=== PATIENT | female | born 1990 | race Caucasian/White ===

== ENCOUNTER 2023-11-15 08:52 | Outpatient (CLI) | payer BC, SELFPAY ==
--- NOTE | ~2023-11-15 | MR_ITS ---
EXAMINATION: MR abdomen wo con DATE: 11/15/2023 11:18 INDICATION: Unspecified abdominal pain. TECHNIQUE: Magnetic resonance imaging (MRI) of the abdomen was performed without intravenous contrast . COMPARISON: None. FINDINGS: There is diffuse hepatic steatosis. The gallbladder, spleen, pancreas, adrenal glands, and kidneys ar e normal. There are no dilated loops of bowel. There are no pathologically enlarged lymph nodes. Ther e is no free intraperitoneal fluid. IMPRESSION: 1. Diffuse hepatic steatosis. Reviewed, dictated and finalized at location A.
--- NOTE | ~2023-11-15 | MR_ITS ---
EXAMINATION: MR hip RT wo con DATE: 11/15/2023 11:18 INDICATION: Idiopathic aseptic necrosis of right femur. Right hip pain. Right lower limb pain. TECHNIQUE: Magnetic resonance imaging (MRI) of the right hip was performed without intravenous contra st. COMPARISON: None FINDINGS: Bones/cartilage: Bone alignment is normal. No acute fracture. Right femoral head demonstrates collapse of the anterior superior articular surface. Right hip demonstrates areas of deep partial-thickness cartilage loss. O steophytes are noted. Large [id number] images of the left hip joint demonstrate normal cartilage. Labrum: The right acetabular labrum is normal. Fluid: There is a small right hip joint effusion. There is mild bilateral trochanteric bursitis. Soft tissues: The gluteus minimus and gluteus medius tendons are intact. The hamstring tendon origins are normal. T he iliopsoas tendons are normal. IMPRESSION: 1. Collapse of anterosuperior articular surface of right femoral head. Moderate right hip joint chond rosis. 2. Small right hip joint effusion. Reviewed, dictated and finalized at location A. IMPRESSION: 1. Collapse of anterosuperior articular surface of right femoral head. Moderate right hip joint chondrosis. 2. Small right hip joint effusion.
--- NOTE | ~2023-11-15 | MR_ITS ---
EXAMINATION: MR femur RT wo con DATE: 11/15/2023 11:18 INDICATION: Right hip and lower limb pain. TECHNIQUE: Magnetic resonance imaging (MRI) of the right femur was performed without intravenous cont rast. COMPARISON: None. FINDINGS: The right hip joint is not included. Bone alignment is normal. No fracture. There is mild o steoarthritis of patellofemoral compartment of right knee. No knee joint effusion. The musculature is normal. IMPRESSION: 1. Mild right knee osteoarthritis. 2. Right hip joint not included. Please refer to today's right hip MRI report for those findings. Reviewed, dictated and finalized at location A. IMPRESSION: 1. Mild right knee osteoarthritis. 2. Right hip joint not included. Please refer to today's right hip MRI report f or those findings.
--- NOTE | ~2023-11-15 | US_ITS ---
EXAMINATION: US thyroid DATE: 11/15/2023 09:24 INDICATION: Personal history of malignant neoplasm of thyroid. TECHNIQUE: Multiple ultrasound images of the thyroid were obtained. COMPARISON: None. FINDINGS: Right thyroid lobe is absent. The tissue in the left thyroidectomy bed measures 1.0 x 0.5 x 0.4 cm. T here is no lymphadenopathy. IMPRESSION: 1. Small volume of tissue in the left thyroidectomy bed. Reviewed, dictated and finalized at location A.
== END 2023-11-15 08:53 ==
PROVIDERS: PCP Nurse Practitioner Family; Visit Provider Nurse Practitioner Family
DX: M87.051 Idiopathic aseptic necrosis of right femur (principal); Z85.850 Personal history of malignant neoplasm of thyroid; R10.9 Unspecified abdominal pain; M17.11 Unilateral primary osteoarthritis, right knee; M94.351 Chondrolysis, right hip; M25.451 Effusion, right hip; K76.0 Fatty (change of) liver, not elsewhere classified
CPT/HCPCS: 73718; 73721; 74181; 76536

== ENCOUNTER 2024-05-22 12:34 | Outpatient (CLI) | payer BC, SELFPAY ==
--- NOTE | ~2024-05-22 | US_ITS ---
EXAMINATION: US thyroid DATE: 05/22/2024 12:48 INDICATION: Personal history of thyroid cancer post total thyroidectomy in October 1998 TECHNIQUE: Multiple ultrasound images of the thyroid were obtained. COMPARISON: 11/15/2023 FINDINGS: Redemonstration of a small focus of thyroid tissue to the left of midline at the level of the carotid artery measuring 12.3 x 6.1 x 4.7 mm (compared with 10.2 x 5.3 x 3.5 mm on the previous study). No homogeneous soft tissue suggesting residual (or recurrent) thyroid tissue is identified to the rig ht of midline, or within the expected region of the isthmus No discrete lymph nodes are present on the submitted images. IMPRESSION: Short interval growth of the triangular-shaped residual (or recurrent) soft tissue to the left of mid line which sonographically resembles thyroid tissue, as detailed above. Reviewed, dictated and finalized at location A. 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
== END 2024-05-22 12:35 | disposition home or self-care (01) ==
LOC: GOSHIMG 12:34
PROVIDERS: PCP Nurse Practitioner Family; Visit Provider Nurse Practitioner Family
DX: Z85.850 Personal history of malignant neoplasm of thyroid (principal); E89.0 Postprocedural hypothyroidism
CPT/HCPCS: 76536

== ENCOUNTER 2024-06-17 08:00 | Outpatient (RCR) | payer BC, SELFPAY ==
--- NOTE | 2024-01-10 08:40 | PCPTNOTE ---
Patient did not show up for scheduled initial evaluation this date.
--- NOTE | 2024-06-04 15:45 | PTOPEVAL1 ---
Assessment and note entered by Marina Cristobal, PT Evaluation Information Assessment Status Evaluation Diagnosis Idiopathic aseptic necrosis of right femur ICD-10 Condition Codes (PT) Pain in right hip M25.551,Weakness R53.1 Other ICD-10 Condition Codes ( stiffness in right hip PT) Subjective Information Pt reports had done PT for hip previously but the bone is so brittle that stretches and strengthening would break chips off. Would do ultrasound and deep tissue and that was successful for her. Has 3 children, 12, 9, 2 y/o. Is constantly running around with her 2 y/o. Is trying to push off surgery as long as she can. Has the most pain some days when she is really active is fine at the time but with the sleeping that night and the next day may have increased pain. Pt also reports riding in the car too long hip will lock up and may bother her for a few days after that. Pt reports is having to take more anti- inflammatory meds than used to, ibuprofen. Is taking possibly 600 mg every other day, mostly for night time otherwise can't sleep In the past ultrasound was very helpful but has not used e-stim Alternated hot and cold also Reported Pain Level Pain Score 7: Self Report Assessment PT Clinical Summary Pt presents w/ right hip pain, weakness, decreased ROM, and gait abnormality related to idiopathic aseptic necrosis of the right femoral head. She has attended therapy in the past approx one year ago and had the best results with soft tissue work and ultrasound modalities. Pt's goals are to decrease pain and improve function to postpone hip replacement surgery as long as she can as she is so young. Pt will greatly benefit from physical therapy to address deficits, and improve pain and function. Plan of Care Interventions Electrical Stimulation,Gait Training,Hot Pack/Cold Pack,Manual Therapy,Neuro Re-education, Therapeutic Activities,Therapeutic Exercise,Self- Care/Home Management,Ultrasound,Other Other Interventions Taping, bracing, IASTM, TENS unit PT Services Indicated Yes Treatment Frequency and 1-2x weekly x 20 visits Duration These treatments will address the objective and functional deficits as defined above. The patient will be advanced safely and appropriately in order for the patient to progress towards his/her prior level of function. Additional exercises will be introduced and as well as a comprehensive home exercise program upon discharge, if needed, ?to ensure carryover of functional gains achieved in the clinic. This treatment plan has been reviewed and agreement upon by the patient.
--- NOTE | 2024-06-04 15:45 | OPREHPOC ---
Outpatient Therapy Plan of Care This is a Multidisciplinary Plan of Care that may contain components documented by all disciplines (PT, OT, and ST.) PT Problem 1 PT Problem #1 Knowledge Deficit PT Goal 1 Goal / Goal Update Pt will be independent in HEP Pt will verbalize understanding of diagnosis and prognosis Target Visit 10 PT Problem 2 PT Problem #2 Pain PT Goal 1 Goal / Goal Update Pt will report lowest pain rating at 0/10 to show improvement in overall discomfort PT Goal 2 Goal / Goal Update Pt will report greatest pain level at 5/10 or less to improve ADLs and activities PT Problem 3 PT Problem #3 Impaired Strength PT Goal 1 Goal / Goal Update Pt will demonstrate gluteus leonard and medius strength of 3/5 to show improved strength for support and function. Target Visit 10 PT Goal 2 Goal / Goal Update Pt will demonstrate gluteus leonard and medius strength of 3+/5 to show improved strength for support and function. Target Visit 20 PT Problem 4 PT Problem #4 Impaired Range of Motion PT Goal 1 Goal / Goal Update Pt will demonstrate active ROM right hip extension of 10 degrees for normalize gait pattern Target Visit 10
--- NOTE | 2024-06-05 09:00 | PTOPEVAL1 ---
Assessment and note entered by Marina Cristobal, PT Evaluation Information Assessment Status Evaluation Diagnosis Idiopathic aseptic necrosis of the right femur ICD-10 Condition Codes (PT) Pain in right hip M25.551,Abnormalities of gait and mobility R26.9,Weakness R53.1 Other ICD-10 Condition Codes ( stiffness in the right hip PT) Subjective Information Pt reports had done PT for hip previously but the bone was so brittle that stretches and strengthening would break chips off. Would do ultrasound and deep tissue and that was successful for her. Has 3 children, 12, 9, and 2 y/. Is constantly running around wiht her 2 y/o. Is trying to push off surgery as long as she can. Has the most pain some days, when she is really active she will be fine at the time but with sleeping that night and the next day will have increased pain. Pt also reports riding in the care too long hip will lock and and may bother her for days after that. Pt reports having to take more anti-inflammatory meds than used to, Ibuprofen and is taking possibly 600 mg every other day., mostly for night time otherwise can't sleep. In the past ultrasound was very helpful but has not tried e-stim. Also Alternates hot and cold. Reported Pain Level Pain Score 7: Self Report Assessment PT Clinical Summary Pt presents w/ right hip pain, weakness, decreased ROM, and gait abnormality related to idiopathic aseptic necrosis of the right femoral head. She has attended therapy in the past approx one year ago and had the best results with soft tissue work and ultrasound modalities. Pt's goals are to decrease pain and improve function to postpone hip replacement surgery as long as she can as she is so young. Pt will greatly benefit from physical therapy to address deficits, and improve pain and function. Plan of Care Interventions Electrical Stimulation,Gait Training,Hot Pack/Cold Pack,Manual Therapy,Neuro Re-education,Patient/ Caregiver Education,Therapeutic Activities, Therapeutic Exercise,Self-Care/Home Management, Ultrasound,Other Other Interventions Taping, bracing, IASTM, TENS unit PT Services Indicated Yes Treatment Frequency and 1-2x weekly x 20 visits Duration These treatments will address the objective and functional deficits as defined above. The patient will be advanced safely and appropriately in order for the patient to progress towards his/her prior level of function. Additional exercises will be introduced and as well as a comprehensive home exercise program upon discharge, if needed, ?to ensure carryover of functional gains achieved in the clinic. This treatment plan has been reviewed and agreement upon by the patient.
--- NOTE | 2024-06-05 09:02 | OPREHPOC ---
Outpatient Therapy Plan of Care This is a Multidisciplinary Plan of Care that may contain components documented by all disciplines (PT, OT, and ST.) PT Problem 1 PT Problem #1 Knowledge Deficit PT Goal 1 Goal / Goal Update Pt will be independent in HEP Pt will verbalize understanding of diagnosis and prognosis Target Visit 10 PT Problem 2 PT Problem #2 Pain PT Goal 1 Goal / Goal Update Pt will report lowest pain rating at 0/10 to show improvement in overall discomfort Target Visit 10 PT Goal 2 Goal / Goal Update Pt will report greatest pain level at 3/10 or less to improve ADLs and activities Target Visit 20 PT Problem 3 PT Problem #3 Impaired Strength PT Goal 1 Goal / Goal Update Pt will demonstrate gluteus leonard and medius strength of 3/5 to show improved strength for support and function Target Visit 10 PT Goal 2 Goal / Goal Update Pt will demonstrate gluteus leonard and medius strength of 3+/5 to show improved strength for support and function Target Visit 20 PT Problem 4 PT Problem #4 Impaired Range of Motion PT Goal 1 Goal / Goal Update Pt will demonstrate active ROM of the right hip extension of 10 degrees for normalized gait pattern Target Visit 10
--- NOTE | 2024-06-05 09:26 | PCPTNOTE ---
Evaluation and plan of care notes deleted and due to incorrect v#.
--- NOTE | 2024-07-01 14:03 | PCPTNOTE ---
Patient did not show up for scheduled appointment this date.
--- NOTE | 2024-07-17 08:28 | PTOPDC ---
Assessment and note entered by Concetta Rain, SPT Evaluation Information Assessment Status Discharge - Pt Not Present Diagnosis Idiopathic aseptic necrosis of the right femur ICD-10 Condition Codes (PT) Pain in right hip M25.551,Abnormalities of gait and mobility R26.9,Weakness R53.1 Other ICD-10 Condition Codes ( stiffness in the right hip PT) Assessment PT Clinical Summary Patient seen for R hip pain due to necrosis of R femur head for 3 treatment sessions. Patient is requesting to be discharged from physical therapy due her opting to undergo surgery at this time. Plan of Care PT Services Indicated No
== END 2024-07-17 08:36 | disposition home or self-care (01) ==
LOC: ANHHIPT 08:00
PROVIDERS: PCP Nurse Practitioner Family; Visit Provider Nurse Practitioner Family
DX: M87.051 Idiopathic aseptic necrosis of right femur (principal)
CPT/HCPCS: 97014; 97035; 97110; 97140; 97162; G0283

== ENCOUNTER 2025-04-01 10:45 | Outpatient (CLI) | payer BC, OTHER, SELFPAY ==
--- NOTE | ~2025-04-01 | CT_ITS ---
EXAM/PROCEDURE: CT abdomen pelvis wo con HISTORY: Right lower quadrant abdominal swelling, palpable mass COMPARISON: None available. TECHNIQUE: Noncontrast CT of the abdomen and pelvis performed. FINDINGS: The bowel gas pattern is nonobstructive with no free air free fluid or pneumatosis. Moderate fatty liver changes. Normal size appendix, aorta and gallbladder. Pancreas spleen stomach and adrenal glands appear normal. No hydroureteronephrosis. No obstructing ureteral stones. No kidney or urinary bladder stones. Anteflexed uterus and adnexal regions appear within normal limits. Along the anterior margin of the lower right rectus abdominous muscle on the lateral aspect in the mid pelvic region, image 99 series 2, a 2.5 x 1.5 x 1.7 cm soft tissue mass is present with mild adjacent strandy changes. This is not clearly fluid attenuating. Moderate degenerative changes and possible avascular necrosis of the right femoral head. Mild degenerative changes in the left hip and lower lumbar spine. No acute or aggressive bony process seen. IMPRESSION: 1. Directed noncontrast exam demonstrating a 2.5 x 1.5 x 1.7 cm soft tissue mass or complex fluid collection along the anterior margin of the lower right rectus abdominis muscle with adjacent strandy changes concerning for infection. Small developing abscess is not excluded. Neoplasm is less likely. 3. Other findings as above. Reviewed, dictated and finalized at location A. KAY MACHINE OPERATOR IMPRESSION: 1. Directed noncontrast exam demonstrating a 2.5 x 1.5 x 1.7 cm soft tissue mas s or complex fluid collection along the anterior margin of the lower right rect us abdominis muscle with adjacent strandy changes concerning for infection. Sma ll developing abscess is not excluded. Neoplasm is less likely. 3. Other findings as above.
== END 2025-04-01 10:46 | disposition home or self-care (01) ==
PROVIDERS: PCP Nurse Practitioner Family; Visit Provider Nurse Practitioner Family
DX: R19.03 Right lower quadrant abdominal swelling, mass and lump (principal); K76.0 Fatty (change of) liver, not elsewhere classified; M16.12 Unilateral primary osteoarthritis, left hip; M43.06 Spondylolysis, lumbar region
CPT/HCPCS: 74176

== ENCOUNTER 2025-04-01 10:50 | Outpatient (CLI) | payer BC, OTHER, SELFPAY ==
--- NOTE | ~2025-04-01 | US_ITS ---
EXAMINATION: US thyroid DATE: 04/01/2025 11:43 INDICATION: Possible nodule TECHNIQUE: Multiple ultrasound images of the thyroid were obtained. COMPARISON: May 22, 2024 FINDINGS: No tissue seen in the right thyroid bed region. In the left thyroid bed region, a 10 x 6 x 4 mm soft tissue focus is noted similar in appearance to the previous exam. IMPRESSION: 1. Status post thyroidectomy with 10 x 6 x 4 mm soft tissue focus in the left thyroid bed region stable to the previous exam given variation in measurement. 2. If there is concern for occult or subtle mass or soft tissue process, correlation with contrast-enhanced soft tissue neck CT may provide additional beneficial information. Reviewed, dictated and finalized at location A. L RUNNER IMPRESSION: 1. Status post thyroidectomy with 10 x 6 x 4 mm soft tissue focus in the left t hyroid bed region stable to the previous exam given variation in measurement. 2. If there is concern for occult or subtle mass or soft tissue process, correl ation with contrast-enhanced soft tissue neck CT may provide additional benefic ial information.
== END 2025-04-01 10:51 | disposition home or self-care (01) ==
PROVIDERS: PCP Internal Medicine Endocrinology, Diabetes & Metabolism; Visit Provider Internal Medicine Endocrinology, Diabetes & Metabolism
DX: Z85.850 Personal history of malignant neoplasm of thyroid (principal); Z90.89 Acquired absence of other organs
CPT/HCPCS: 76536

== ENCOUNTER 2025-04-13 00:17 | Day surgery (SDC) | payer BC, OTHER, SELFPAY ==
--- OUTSIDE RECORDS SUMMARY | 2024-07-07 02:20 | XMS_ITS ---
Author Organization [facility] Address [address] [place] [address] Care Team Providers Care Shirt Ironer Supervisor Name Role Phone Raquel Phan Primary Care Provider [phone] REASON FOR VISIT 6 week f/u sharif Medications Medication SIG (Take, Route, Frequency, Duration) Notes Start Date End Date Status Tirosint 150 MCG Capsule 1 capsule in th e morning on an empty stomach Orally Once a day; Duration: 90 days 05/23/2024 Active Encounters Encounter Location Date Provider Diagnosis [facility] Dr. 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 Originally dx with thyroid cancern in 2018= had total thyroidectomy and has received I131 BAKER x 2 occasions-last scan normal from 2019. Last TSH elevated at 3.57 uIU/ml from fall. Had thyroid u/s from November 11 revealed residual thyroid tissue in left bed 10.2 x 5.3 x 3.5 mm and just yesterday she went to see ENT from her surgeon to follow up on growth- and just watching/monitoring at this time. Repeat thyroid u/s yesterday was 12.3 x 6.1 x 4.7 mm. 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 Originally dx with thyroid cancern in 2018= had total thyroidectomy and has received I131 BAKER x 2 occasions-last scan normal from 2019. Last TSH elevated at 3.57 uIU/ml from fall. Had thyroid u/s from November 11 revealed residual thyroid tissue in left bed 10.2 x 5.3 x 3.5 mm and just yesterday she went to see ENT from her surgeon to follow up on growth- and just watching/monitoring at this time. Repeat thyroid u/s yesterday was 12.3 x 6.1 x 4.7 mm. At last visit/initial visit in May we sent for labwork - not completed. * Medications: T akingTirosint 150 MCG Capsule 1 capsule in the morning on an empty stomach Orally Once a day Taking Tirosint 150 MCG Capsule 1 capsule in the morning on an empty stomach Orally Once a day Billing Information: * Procedure Codes: * Electronic signature of Mg Phan MD on 04/13/2025 at 12:21 AM SENIOR INFORMATICA DEVELOPER Sign off status: Pending * Provider: Otoniel Phan MD Date: 07/07/2024 Generated for Javier aquino/Syed/Addisitting on: 06/13/2024 12:21 AM SENIOR INFORMATICA DEVELOPER
--- NOTE | 2025-04-06 12:38 | PC.NURSE ---
[facility] has started construction of its new state of the art ER which will open Spring 2026. With this, we anticipate parking may be a challenge for some our surgical patients and families. Parking spaces are limited but are available for all Surgical, obstetrics, and ER patients sharing this lot. If you arrive and find you are having a hard time finding a parking space, please note that we understand the challenges, please drive around the hospital and park near Hospital Entrance 1. When you enter this entrance, you can ask a volunteer to direct or take you back to the surgical waiting area to check in. We appreciate everyone?s understanding of these expected challenges while we build for your future. Report to the Outpatient Waiting Room, entrance under the green pavilion located off [address], at time __1200 NOON on date _04/13/25 . Planned Procedure Time: _2_PM .? Time changes happen often and if your time is changed the preop area will call you the afternoon before. - You and your visitor will be asked to self-screen and do not enter if you have any COVID symptoms. Please call surgeon if you need to reschedule. - A mask is optional within the hospital at this time. Patients may have clear liquids (water, carbonated beverages, clear teas, apple juice) until 3 hours prior to surgery( 11 AM ) with a maximum of 20 ounces. - No food from midnight until time of surgery and no smoking, or chewing tobacco (or any form of nicotine). No chewing gum, candy or mints. - Take only the following medications with a SIP of water on the morning of surgery: __TIROSINT DO NOT STOP ANY OF YOUR OTHER PRESCRIPTION MEDICATIONS PRIOR TO SURGERY EXCEPT THE FOLLOWING Hold all vitamins and supplements for 3 days per anesthesiologist.LAST DOSE 04/09/25 Medications to discontinue per physician NONE Please no make-up, nail uzbek, hairspray, perfume, deodorant, or body powder the day of surgery.? No jewelry (including any body piercings) or valuables the day of surgery, leave them at home.? Please take a shower or bath the night before, or the morning of, surgery with an antibacterial soap.? Wear comfortable, loose fitting clothing.? Children are encouraged to wear pajamas. - Jewelry must be removed prior to entering the operating room.? Rings and piercings that are not removed may be cut off. - The hospital will not accept responsibility for valuables.? - Please leave all valuables, including medications, at home the day of surgery. If you are going home after surgery, a licensed wrecking car driver must drive you home.? - NO public transportation without another adult if you receive anesthesia. - We recommend that an adult stay with you for 24 hours following discharge. - We also recommend that you do not drive, make important decision, drink alcoholic beverages, or take any drugs that were not prescribed by your health care provider for at least 24 hours after your discharge time. For Pediatric surgeries, we recommend two adults accompany the child home. Follow any additional instructions given to you from your surgeon. Telephone instructions given to __PATIENT and asked if any additional questions and then verbalized understanding. Patient advised to call surgeon office or pre surgery nurse liaison [phone] if any additional questions.
[2025-04-06 12:47] VITALS: BMI 36.1
[2025-04-13] VITALS (9 sets, daily range): BP systolic 113–130; BP diastolic 60–89; PULSE 85–110; RESP 12–20; O2SAT 100; BMI 36.1
--- NOTE | ~2025-04-13 | US_ITS ---
EXAMINATION: US_WIRELOC_US DATE: 04/13/2025 13:09 INDICATION: Needle localization required for a right lower quadrant abdominal wall mass resection TECHNIQUE: The procedure including the risks and benefits was discussed with the patient. Risks discussed included bleeding and infection. The patient understood the risks and agreed to proceed. The skin overlying the lesion of concern at the right lower quadrant was prepped and draped in usual sterile fashion. Anesthetic was administered with 1% lidocaine subcutaneously. A needle was advanced under continuous ultrasound guidance into the hypoechoic nodule of concern along the right lower quadrant anterior abdominal wall musculature. A hooked localization wire was advanced through the guide needle into the lesion of concern. The guide needle was removed. A sterile bandage was placed over the portion of the wire external to the patient. There were no immediate complications.. FINDINGS: Ultrasound images demonstrate the hyperechoic tip of the guide needle centered within the 3.1 x 2.0 x 1.6 similar hypoechoic nodule located along the superficial margin of the abdominal wall musculature in the right lower quadrant. IMPRESSION: 1. Successful Ultrasound-guided needle localization of a 3.1 x 2.0 x 1.6 cm right lower quadrant abdominal wall nodule for subsequent planned resection. Reviewed, dictated and finalized at location A. [place] [employer] IMPRESSION: 1. Successful Ultrasound-guided needle localization of a 3.1 x 2.0 x 1.6 cm rig ht lower quadrant abdominal wall nodule for subsequent planned resection.
--- OUTSIDE RECORDS SUMMARY | 2025-04-13 00:21 | XMS_ITS | Clinical Summary ---
Author Organization [place] [id number] [facility] Address [facility] [place] [address] Care Team Providers Care Political Organizer Name Role Phone Unknown, Notinfile Primary Care Provider Unavail able Allergies Active Allergy Reactions Criticality Noted Date Comments Iodine Rash Medium 10/31/2019 Shellfish Unknown 05/07/2023 Medications cholecalciferol (VITAMIN D-3) 2000 unit capsule daily Active fluticasone propionate (FLONASE) 50 mcg/actuation nasal spray fluticasone propionate 50 mcg/actuation nasal spray,suspension U 1 SPR IEN QHS . NEEDS AN APPOINTMENT IN 1 MONTH. Active levothyroxine sodium (Tirosint) 125 mcg capsule Take 150 mcg by mouth [employer] before breakfast Active oseltamivir (TAMIFLU) 75 mg capsule oseltamivir 75 mg capsule Active thyrotropin stephen (THYROGEN) 1.1 mg (0.9 mg/ mL final conc.) recon soln 0.9 mg daily Active Active Problems Problem Noted Date Diagnosed Date Family hx of colon cancer 10/08/2023 Family history of colon cancer 06/08/2023 Abdominal pain 06/08/2023 Neck mass 10/31/2019 Surgical History Surgery Date Site/Laterality Comments THYROID SURGERY Medical History Medical History Date Comments Allergic rhinitis Anxiety Autoimmune disease Thyroid disease Family History Medical History Relation Name Comments gallbladder cancer Father Colon cancer Maternal Grandfather Stomach cancer Maternal Grandmother Cancer Other Relation Name Status Comments Father Maternal Grandfather Maternal Grandmother Other Social History Tobacco Use Types Packs/Day Years Used Date Smoking Tobacco: Never Smokeless Tobacco: Never AUDIT-C Answer Date Recorded Q1: How often do you have a drink containing alc ohol? Never 06/08/2023 Average Number of Drinks Not on file 024 Frequency of Binge Drinking Not on file 05/21 Personal Safety Answer Date Recorded Getting School Help Needed Not on file 06/06 Comments Unknown Sex and Gender Information Value Date Recorded Sex Assigned at Not on file Legal Sex Female 11:53 AM CDT Gender Identity Not on file Sexual Orientation Not on file Last Filed Vital Signs Vital Sign Reading Time Taken Comments Blood Pressure 115/67 06/08/2023 1:47 PM [employer] Pulse 78 06/08/2023 1:47 PM [employer] Temperature 36.7 C (98.1 F) 10/31/2019 3:15 PM CDT Respiratory Rate - - Oxygen Saturation 99% 06/08/2023 1:47 PM [employer] Inhaled Oxygen Concentration - - Weight 88.8 kg (195 lb 11.2 oz) 06/08/2023 1:47 PM [employer] Height 162.6 cm (5' 4) 06/08/2023 1:47 PM [employer] Body Mass Index 33.59 06/08/2023 1:47 PM [employer] Plan of Treatment Health Maintenance Due Date Last Done Comments Cervical Cancer Screening 1989 Depression Screening 1989 DTaP/Tdap/Td Vaccine (1 - Tdap) 2000 Varicella Vaccines (1 of 2 - 13+ 2-dose series) 2002 Hepatitis B Screening 12/18/2007 Regular Well Visit/Exam 18-64 12/18/2007 HPV Vaccines (1 - 3-dose SCD M series) 2016 Influenza Vaccine (#1) 2025 02/17/2020 Hepatitis C Screening Completed 06/08/2023 Pneumococcal vaccine <65 Aged Out No longer eligible based on patient's age to complete this topic Procedures Procedure Name Priority Date/Time Associated Diagnosis Comments HEPATITIS PANEL, ACUTE Routine 06/08/2023 2:49 PM [employer] Non-alcoholic fatty liver disease Hepatic steatosis from Last 3 Months or Most Recently Relevant to Health Maintenance Results * Hepatitis panel, acute Blood (06/08/2023 2:49 PM [employer]) Hep A IgM Nonreactive Nonreactive [facility] (YENIFER) Comment: Interpretive Data: If Hep A IgM Ab is reported as Equivocal, a new sample should be drawn in two weeks for testing. Current interpretive data was last revised on 19. Testing performed by: [facility], [address] [place] [address]., [id number] Hep B core IgM Nonreactive Nonreactive C KATERINA LACEY (YENIFER) Comment: Interpretive Data If HepB Core IgM Ab is reported as Equivocal, a new sample should be drawn in two weeks for testing. Current interpretive data was last revised on 19. Testing performed by: [facility], [address] [place] [address]., [id number] Hep C Ab Nonreactive Nonreactive BRIAN LACEY (YENIFER) Comment: Interpretive Data Nonreactive: Antibodies to HCV not detected. Does NOT exclude the possibility of recent exposure to HCV. Equivocal: Equivocal for HCV antibodies. Supplemental molecular testing will be automatically performed to determine infection status in accordance with current CDC screening recommendations. Reactive: Positive for HCV antibodies. This may represent current or past HCV infection. Supplemental molecular testing will be automatically performed to determine current infection status in accordance with current CDC screening recommendations. Interpretive data was last revised on 2019. Testing performed by: [facility], [address] [place] [address]., [id number] HepBsAg Nonreactive Nonreactive BRIAN LACEY (YENIFER) Comment:Testing performed by : [address] [id number] Blood 06/08/2023 2:49 PM [employer] 06/08/2023 7:44 PM [employer] [facility] - GENER AL ORDERABLES Final Result BRIAN LACEY (YENIFER) 1 [facility] [place] [address] from Last 3 Months or Most Recently Relevant to Health Maintenance Insurance [facility] Care Teams Political Organizer Relationship Specialty Start Date End Date Unknown, Notinftressa PCP - General 11/29/23
--- OUTSIDE RECORDS SUMMARY | 2025-04-13 00:21 | XMS_ITS | Patient Health Record ---
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 Role Phone Raquel Phan Primary Care Provider Allergies Allergen (clinical drug ingredient) Drug/Non Drug Allergy documented on EMR Reaction Allergy Type Onset Date Status Iodine Unknown Drug Allergy Active Shellfish (FN) Shellfish-derived Products Unknown Drug Allergy Active Results Component Value Reference Range Flag Notes .COMPREHENSIVE METABOLIC FONSECA EL (36521) CMP Reviewed date:08/17/2024 03:01:26 PM Interpretation: Performing Lab:[place], [facility]-Dkcmdo61017 Jonn [facility], QyriwdXU[address] Jamin Harris MD Notes/Report: FASTING:YES FASTING: YES GLUCOSE 77 65-99 mg/dL N Fasting refer ence interval UREA NITROGEN (BUN) 11 7-25 mg/dL N CREATININE 0.65 0.50-0.97 mg/dL N EGFR 118 > OR = 60 mL/min/1.73m2 N BUN/CREATININE RATIO SEE NOTE: 6-22 (calc) reference range. Not Reported: BUN and Creatinine are within SODIUM 137 135-146 mmol/L N POTASSIUM 4.0 3.5-5.3 mmol/L N CHLORIDE 104 98-110 mmol/L N CARBON DIOXIDE 23 20-32 mmol/L N CALCIUM 9.5 8.6-10.2 mg/dL N PROTEIN, TOTAL 7.2 6.1-8.1 g/dL N ALBUMIN 4.5 3.6-5.1 g/dL N GLOBULIN 2.7 1.9-3.7 g/dL (calc) N ALBUMIN/GLOBULIN RATIO 1.7 1.0-2.5 (calc) N BILIRUBIN, TOTAL 0.6 0.2-1.2 mg/dL N ALKALINE PHOSPHATASE 59 31-125 U/L N AST 30 10-30 U/L N ALT 49 6-29 U/L H MAGNESIUM (622) Reviewed date:08/17/2024 03:01:26 PM Interpretation: Performing Lab:PILAR [facility]-Lfxocs88369 Jonn Harrell, MucxrdQG[address] Jamin Harris MD Notes/Report: FASTING:YES FASTING: YES MAGNESIUM 2.2 1.5-2.5 mg/dL N IRON AND TOTAL IRON BINDING CAPACITY (7573) Reviewed date:08/17/2024 03:01:26 PM Interpretation: Performing Lab:Trino QUEZADA-Dyxiyk90432 Jonn Harrell, RnbilqDE[address] Jamin Harris MD Notes/Report: FASTING:YES FASTING: YES IRON, TOTAL 87 40-190 mcg/dL N IRON BINDING CAPACITY 392 250-450 mc g/dL (calc) N % SATURATION 22 16-45 % (calc) N .LIPID PANEL, STANDARD (7600 ) Reviewed date:08/17/2024 03:01:26 PM Interpretation: Performing Lab:PILAR [facility]-Ukrzvu86996 Jonn Harrell, DkeccwOP[address] Jamin Harris MD Notes/Report: FASTING:YES FASTING: YES CHOLESTEROL, TOTAL 246 <200 mg/dL H HDL CHOLESTEROL 65 > OR = 50 mg/dL N TRIGLYCERIDES 154 <150 mg/dL H LDL-CHOLESTEROL 152 H Justin SS et al. NURYS. 2013;310(19): 0944-7186 (http://education.ididwork/faq/NYY172) Reference range: <100 LDL-C is now calculated using the Justin-Boyd estimation of LDL-C. better accuracy than the Friedewald equation in the <70 mg/dL for patients with CHD or diabetic patients with > or = 2 CHD risk factors. calculation, which is a validated novel method providing Desirable range <100 mg/dL for primary prevention; CHOL/HDLC RATIO 3.8 <5.0 (calc) N NON HDL CHOLESTEROL 181 <130 mg/dL (calc) H (LDL-C of <70 mg/dL) is considered a therapeutic factor, treating to a non-HDL-C goal of <100 mg/dL For patients with diabetes plus 1 major ASCVD risk option. .CBC (INCLUDES DIFF/PLT) (63 99) Reviewed date:08/17/2024 03:01:26 PM Interpretation: Performing Lab:Trino QUEZADAa101Kayla Harrell, JsavkgSR[address] Jamin Harris MD Notes/Report: FASTING:YES FASTING: YES WHITE BLOOD CELL COUNT 6.8 3.8-10.8 Thousand/uL N RED BLOOD CELL COUNT 5.03 3.80-5.10 Million/uL N HEMOGLOBIN 14.1 11.7-15.5 g/dL N HEMATOCRIT 43.2 35.0-45.0 % N MCV 85.9 80.0-100.0 fL N MCH 28.0 27.0-33.0 pg N MCHC 32.6 32.0-36.0 g/dL N interpreted with caution in correlation with other red cell parameters and the patient's clinical value (in the range of 30 to 32 g/dL) is most likely For adults, a slight decrease in the calculated MCHC condition. not clinically significant; however, it should be RDW 12.8 11.0-15.0 % N PLATELET COUNT 291 140-400 Thousand/uL N MPV 9.0 7.5-12.5 fL N ABSOLUTE NEUTROPHILS [phone] cells/uL N ABSOLUTE LYMPHOCYTES 3520 096-8441 cells/uL N ABSOLUTE MONOCYTES 632 200-950 cells/uL N ABSOLUTE EOSINOPHILS 122 15-500 cells/uL N ABSOLUTE BASOPHILS 61 0-200 cells/uL N NEUTROPHILS 64.2 N LYMPHOCYTES 23.8 N MONOCYTES 9.3 N EOSINOPHILS 1.8 N BASOPHILS 0.9 N SED RATE BY MODIFIED TOR BOWENS (809) Reviewed date:08/17/2024 03:01:26 PM Interpretation: Performing Lab:Trino QUEZADA LenexaKS[address] Jamin Harris MD Notes/Report: FASTING:YES FASTING: YES SED RATE BY MODIFIED NAKIA 17 < OR = 20 mm/h N ESTRADIOL (4021) Reviewed date:08/17/2024 03:01:26 PM Interpretation: Performing Lab:Trino QUEZADA Len[place]aKS[address] Jamin Harris MD Notes/Report: FASTING:YES FASTING: YES ESTRADIOL 134 N Follicular Phase: 19-144 Reference range established on post-pubertal patient Postmenopausal: < or = 31 interference in immunoassay methods for estradiol population. No pre-pubertal reference range fulvestrant (Faslodex(R)) have demonstrated significant Reference Range Estradiol, Ultrasensitive, LCMSMS assay is recommended measurement. The cross reactivity could lead to falsely pre-pubertal children and hypogonadal/post-menopaus al Please note: patients being treated with the drug (order code [id number]). [employer] order code [id number], Ultrasensitive LC/MS/MS demonstrates negligible cross Mid-Cycle: 64-357 established using this assay. For any patients for Luteal Phase: 56-214 females), the [employer] [facility] reactivity with fulvestrant. whom low Estradiol levels are anticipated (e.g. males, elevated estradiol test results leading to an inappropriate clinical assessment of estrogen status. T3, FREE (94504) Reviewed date:08/17/2024 03:01:26 PM Interpretation: Performing Lab:PILAR [facility]-Yqfycj53479 [facility], HugnzbSG[address] Jamin Harris MD Notes/Report: FASTING:YES FASTING: YES T3, FREE 3.8 2.3-4.2 pg/mL N TESTOSTERONE, FREE (DIALYSIS ) AND TOTAL,MS (89835) Reviewed date:08/20/2024 08:18:47 PM Interpretation: Performing Lab:Z3E, [facility] [employer]-QviMfpdmr[address] [place] [address], [address], HjuqkjyubzSK[address] Eliud Gordon MD,PhD Notes/Report: FASTING:YES FASTING: YES TESTOSTERONE, TOTAL, MS 40 2-45 ng/dL For additional information, please refer to This test was developed and its analytical performance https://education.Protein Bar.Lanica/faq/RCD586 been validated pursuant to the CLIA regulations and is used for clinical purposes. not been cleared or approved by the FDA. This assay has characteristics have been determined by [employer]. It has (Note) (This link is being provided for informational/educational purposes only.) TESTOSTERONE, FREE 4.9 0.1-6.4 pg/mL [phone] [facility] [address] been validated pursuant to the CLIA regulations and is not been cleared or approved by the FDA. This assay has characteristics have been determined by [employer]. It has [address] [facility] [address] used for clinical purposes. This test was developed and its analytical performance Eliud Gordon MD, PhD med [employer]zen[employer] (Note) THYROGLOBULIN PANEL (98311) Reviewed date:08/20/2024 08:18:47 PM Interpretation: Performing Lab:PJ [facility]-[place] Xoki[address] [facility] [address], [place] PimwKE[address] Filippo Bailey Notes/Report: FASTING:YES FASTING: YES THYROGLOBULIN ANTIBODIES <1 < or = 1 IU/mL THYROGLOBULIN <0.1 L Athyrotic <0.1 Intact Thyroid 2.8-40.9 (This link is being provided for informational/ different assay methods cannot be used Note: Abnormal flagging is based interchangeably. Thyroglobulin levels, regardless This test was performed using the [employer] educational purposes only.) http://education.Aegis Mobility/faq/YQV794 evidence of the presence or absence of disease. of value, should not be interpreted as absolute For additional information, please refer to patients with intact thyroid. on the reference interval for Reference Range: chemiluminescent method. Values obtained from ACTH, PLASMA (211) Reviewed date:08/20/2024 08:18:47 PM Interpretation: Performing Lab:Trino WISE/Zelda Louie [id number] Armaan Santos, KtxtnpkwbVI[address] Nahun Salgado M.D.,PhD Notes/Report: FASTING:YES FASTING: YES ACTH, PLASMA 19 6-50 pg/mL Reference range applies only to specimens collected between 7am-10am. .COMPREHENSIVE METABOLIC FONSECA EL (64352) [facility] Reviewed date:02/15/2025 01:23:51 PM Interpretation: Performing Lab:Trino QUEZADA-Khamew13721 Jonn Harrell, PvafbdVJ[address] Jamin Harris MD Notes/Report: FASTING:YES FASTING: YES GLUCOSE 87 65-99 mg/dL N Fasting refer ence interval UREA NITROGEN (BUN) 11 7-25 mg/dL N CREATININE 0.62 0.50-0.97 mg/dL N EGFR 119 > OR = 60 mL/min/1.73m2 N BUN/CREATININE RATIO SEE NOTE: 6-22 (calc) reference range. Not Reported: BUN and Creatinine are within SODIUM 139 135-146 mmol/L N POTASSIUM 4.1 3.5-5.3 mmol/L N CHLORIDE 106 98-110 mmol/L N CARBON DIOXIDE 26 20-32 mmol/L N CALCIUM 9.4 8.6-10.2 mg/dL N PROTEIN, TOTAL 6.8 6.1-8.1 g/dL N ALBUMIN 4.3 3.6-5.1 g/dL N GLOBULIN 2.5 1.9-3.7 g/dL (calc) N ALBUMIN/GLOBULIN RATIO 1.7 1.0-2.5 (calc) N BILIRUBIN, TOTAL 0.6 0.2-1.2 mg/dL N ALKALINE PHOSPHATASE 63 31-125 U/L N AST 19 10-30 U/L N ALT 31 6-29 U/L H MAGNESIUM (622) Reviewed date:02/15/2025 01:23:51 PM Interpretation: Performing Lab:PILAR [facility]-Puzezo53305Kayla Harrell, XgxhznUK[address] Jamin Harris MD Notes/Report: FASTING:YES FASTING: YES MAGNESIUM 2.2 1.5-2.5 mg/dL N IRON AND TOTAL IRON BINDING CAPACITY (7573) Reviewed date:02/15/2025 01:23:51 PM Interpretation: Performing Lab:Trino QUEZADA-Ixuygs57162Kayla Harrell, OfrhknQU[address] Jamin Harris MD Notes/Report: FASTING:YES FASTING: YES IRON, TOTAL 83 40-190 mcg/dL N IRON BINDING CAPACITY 372 250-450 mc g/dL (calc) N % SATURATION 22 16-45 % (calc) N .LIPID PANEL, STANDARD (7600 ) Reviewed date:02/15/2025 01:23:51 PM Interpretation: Performing Lab:PILAR [facility]-Uolasz08086Kayla Harrell, VkbahwGA[address] Jamin Harris MD Notes/Report: FASTING:YES FASTING: YES CHOLESTEROL, TOTAL 220 <200 mg/dL H HDL CHOLESTEROL 64 > OR = 50 mg/dL N TRIGLYCERIDES 121 <150 mg/dL N LDL-CHOLESTEROL 133 H calculation, which is a validated novel method providing with > or = 2 CHD risk factors. Justin SS et al. NURYS. 2013;310(19): 6698-9576 Desirable range <100 mg/dL for primary prevention; (http://education.ididwork/faq/JVB626) better accuracy than the Friedewald equation in the <70 mg/dL for patients with CHD or diabetic patients estimation of LDL-C. Reference range: <100 LDL-C is now calculated using the [facility] CHOL/HDLC RATIO 3.4 <5.0 (calc) N NON HDL CHOLESTEROL 156 <130 mg/dL (calc) H factor, treating to a non-HDL-C goal of <100 mg/dL option. For patients with diabetes plus 1 major ASCVD risk (LDL-C of <70 mg/dL) is considered a therapeutic .CBC (INCLUDES DIFF/PLT) (63 99) Reviewed date:02/15/2025 01:23:51 PM Interpretation: Performing Lab:PILAR [facility]-Csfpoj69757 Jonn [facility], ChfrgkRK[address] Jamin Harris MD Notes/Report: FASTING:YES FASTING: YES WHITE BLOOD CELL COUNT 6.0 3.8-10.8 Thousand/uL N RED BLOOD CELL COUNT 4.89 3.80-5.10 Million/uL N HEMOGLOBIN 13.3 11.7-15.5 g/dL N HEMATOCRIT 41.6 35.0-45.0 % N MCV 85.1 80.0-100.0 fL N MCH 27.2 27.0-33.0 pg N MCHC 32.0 32.0-36.0 g/dL N red cell parameters and the patient's clinical value (in the range of 30 to 32 g/dL) is most likely not clinically significant; however, it should be condition. For adults, a slight decrease in the calculated MCHC interpreted with caution in correlation with other RDW 13.4 11.0-15.0 % N PLATELET COUNT 291 140-400 Thousand/uL N MPV 8.9 7.5-12.5 fL N ABSOLUTE NEUTROPHILS 3564 1168-2285 cells/uL N ABSOLUTE LYMPHOCYTES 2305 112-0448 cells/uL N ABSOLUTE MONOCYTES 420 200-950 cells/uL N ABSOLUTE EOSINOPHILS 120 15-500 cells/uL N ABSOLUTE BASOPHILS 72 0-200 cells/uL N NEUTROPHILS 59.4 N LYMPHOCYTES 30.4 N MONOCYTES 7.0 N EOSINOPHILS 2.0 N BASOPHILS 1.2 N .HEMOGLOBIN A1c (496) Reviewed date:02/15/2025 01:23:51 PM Interpretation: Performing Lab:Trino IRWIN-[place] [id number] Jamin Harris Notes/Report: FASTING:YES FASTING: YES HEMOGLOBIN A1c 5.4 <5.7 % of total Hgb N hemoglobin A1c for diagnosis of diabetes in children. For the purpose of screening for the presence of (prediabetes) of diabetes. According to [place] Diabetes Association (ADA) > or =6.5% Consistent with diabetes Currently, no consensus exists regarding use of 5.7-6.4% Consistent with increased risk for diabetes control in non- diabetic patients. Different This assay result is consistent with a decreased risk metrics may apply to specific patient populations. diabetes: Standards of Medical Care in Diabetes(ADA). <5.7% Consistent with the absence of diabetes guidelines, hemoglobin A1c <7.0% represents optimal VITAMIN B12/FOLATE, SERUM PA ABBIE (7938) Reviewed date:02/15/2025 01:23:51 PM Interpretation: Performing Lab:Trino QUEZADA [place] Jamin Harris MD Notes/Report: FASTING:YES FASTING: YES VITAMIN B12 063 327-5366 pg/mL N FOLATE, SERUM 13.5 N Normal: >5.4 Low: <3.4 Reference Range Borderline: 3.4-5.4 FERRITIN (457) Reviewed date:02/15/2025 01:23:51 PM Interpretation: Performing Lab:Trino QUEZADA [place] Jamin Harris MD Notes/Report: FASTING:YES FASTING: YES FERRITIN 25 16-154 ng/mL N T4, FREE (866) Reviewed date:02/15/2025 01:23:51 PM Interpretation: Performing Lab:Trino QUEZADA [place] Jamin Harris MD Notes/Report: FASTING:YES FASTING: YES T4, FREE 1.7 0.8-1.8 ng/dL N TSH (899) Reviewed date:02/15/2025 01:23:51 PM Interpretation: Performing Lab:Trino QUEZADA-Bymdxv87771 Jonn Harrell, VxgauxUG[address] Jamin Harris MD Notes/Report: FASTING:YES FASTING: YES TSH 0.05 L First trimester 0.26-2.66 Second trimester 0.55-2.73 Ranges > or = 20 Years 0.40-4.50 Reference Range Third trimester 0.43-2.91 T3, FREE (20294) Reviewed date:02/15/2025 01:23:51 PM Interpretation: Performing Lab:Trino QUEZADA-Askpse48948 Jonn Harrell, EotjpbCD[address] Jamin Harris MD Notes/Report: FASTING:YES FASTING: YES T3, FREE 3.6 2.3-4.2 pg/mL N .VITAMIN D,25-OH,TOTAL,IA (1 7306) Reviewed date:02/15/2025 01:23:51 PM Interpretation: Performing Lab:Trino QUEZADA-Dpxpeb05034 Jonn Harrell, ZiegphSI[address] Jamin Harris MD Notes/Report: FASTING:YES FASTING: YES VITAMIN D,25-OH,TOTAL,IA 34 30-100 ng/mL N code 59152 (patients >2yrs). Deficiency: <20 ng/mL D2-supplementation and patients for whom quantitation (This link is being provided for informational/ For 25-OH Vitamin D testing on patients on Optimal: > or = 30 ng/mL See Note 1 25-OH VIT D, (D2,D3), LC/MS/MS is recommended: order http://education.Bevalley/faq/EWE602 Insufficiency: 20 - 29 ng/mL Vitamin D Status 25-OH Vitamin D: Note 1 educational purposes only.) For additional information, please refer to of D2 and D3 fractions is required, the [facility] THYROGLOBULIN PANEL (90348) Reviewed date:02/15/2025 01:23:51 PM Interpretation: Performing Lab:CB, [facility] [address], [place] XyduAS[address] Filippo Bailey Notes/Report: FASTING:YES FASTING: YES THYROGLOBULIN ANTIBODIES <1 < or = 1 IU/mL THYROGLOBULIN <0.1 L Note: Abnormal flagging is based (This link is being provided for informational/ evidence of the presence or absence of disease. different assay methods cannot be used http://education.Aegis Mobility/faq/EVI617 Intact Thyroid 2.8-40.9 Athyrotic <0.1 chemiluminescent method. Values obtained from of value, should not be interpreted as absolute educational purposes only.) on the reference interval for Reference Range: For additional information, please refer to interchangeably. Thyroglobulin levels, regardless patients with intact thyroid. This test was performed using the [employer] C-REACTIVE PROTEIN (4420) Reviewed date:08/17/2024 03:01:26 PM Interpretation: Performing Lab:Trino QUEZADA-Jsnsva34880 Mend[place] Orellana[address] Jamin Harris MD Notes/Report: FASTING:YES FASTING: YES C-REACTIVE PROTEIN 10.5 <8.0 mg/L H INSULIN (561) Reviewed date:08/17/2024 03:01:26 PM Interpretation: Performing Lab:Trino QUEZADA-Cchquu55954 [place] Jamin Harris MD Notes/Report: FASTING:YES FASTING: YES INSULIN 12.0 N studies performed at [employer] Risk: Moderate NA Adult cardiovascular event risk category Optimal < or = 18.4 in 2021. High >18.4 Reference Range < or = 18.4 cut points (optimal, moderate, high) are based on Insulin Reference Interval PROGESTERONE (745) Reviewed date:08/17/2024 03:01:26 PM Interpretation: Performing Lab:PILAR [employer] Ar[facility]-Etuvfe24214M[place]y [place] Jamin Harris MD Notes/Report: FASTING:YES FASTING: YES PROGESTERONE 9.5 N Luteal Phase 2.6-21.5 Female Post menopausal < 0.5 1st Trimester 4.1-34.0 Follicular Phase < 1.0 Reference Ranges 3rd Trimester 52.0-302.0 2nd Trimester 24.0-76.0 DHEA SULFATE (402) Reviewed date:08/17/2024 03:01:26 PM Interpretation: Performing Lab:Trino QUEZADA [place] Jamin Harris MD Notes/Report: FASTING:YES FASTING: YES DHEA SULFATE 283 19-237 mcg/dL H FSH (470) Reviewed date:08/17/2024 03:01:26 PM Interpretation: Performing Lab:Trino QUEZADA [place] Jamin Harris MD Notes/Report: FASTING:YES FASTING: YES FSH 2.4 N Luteal Phase 1.5- 9.1 Mid-cycle Peak 3.1-17.7 Follicular Phase 2.5-10.2 Reference Range Postmenopausal 23.0-116.3 LH (615) Reviewed date:08/17/2024 03:01:26 PM Interpretation: Performing Lab:Trino QUEZADA [place] Jamin Harris MD Notes/Report: FASTING:YES FASTING: YES LH 5.2 N Reference Range Mid-Cycle Peak 8.7-76.3 Postmenopausal 10.0-54.7 Luteal Phase 0.5-16.9 Follicular Phase 1.9-12.5 T4, FREE (866) Reviewed date:08/17/2024 03:01:26 PM Interpretation: Performing Lab:Trino QUEZADA [place] Jamin Harris MD Notes/Report: FASTING:YES FASTING: YES T4, FREE 1.5 0.8-1.8 ng/dL N TSH (899) Reviewed date:08/17/2024 03:01:26 PM Interpretation: Performing Lab:Trino QUEZADA [place] Jamin Harris MD Notes/Report: FASTING:YES FASTING: YES TSH 0.29 L Third trimester 0.43-2.91 First trimester 0.26-2.66 Reference Range Ranges Second trimester 0.55-2.73 > or = 20 Years 0.40-4.50 Reason For Referral No Information Medications Medication SIG (Take, Route, Frequency, Duration) Notes Start Date End Date Status Tirosint 150 MCG Capsule 1 capsule in th e morning on an empty stomach Orally Once a day; Duration: 90 days 08/21/2024 Active Tirosint 137 MCG Capsule 1 capsule in th e morning on an empty stomach Orally Once a day; Duration: 90 days 02/20/2025 Active Social History Social History Additional Details Category Social Info Options Details Migrated Social History Migrated Social History (Alcohol:):no (Recreational drug use:):no (Smoking:):no Section Notes: Caffeine: yes Caffeine: yes Caffeine: yes Problems Problem Type SNOMED Code ICD Code Onset Dates Problem Status W/U Status Risk Notes Problem Hypothyroidism (08856978) Hypothyroidism, unspecified (E03.9) Active confirmed Problem Obesity (516518426) Obesity, unspecified (E66.9) Active confirmed Problem History of malignant neoplasm of thyroid (385759615) Personal history of malignant neoplasm of thyroid (Z85.850) Active confirmed Problem Polycystic ovary syndrome (disorder) (875650841) PCOS (polycystic ovarian syndrome) (E28.2) Active confirmed Vital Signs Heart Rate 125 /min 02/20/2025 Respiratory Rate 12 /min 08/21/2024 Height-cm 162.56 cm 02/20/2025 Oximetry 97 % 02/20/2025 Blood pressure diastolic 73 mm Hg 02/20/2025 Weight-kg 92.08 kg 02/20/2025 Height 64 in 02/20/2025 Blood pressure systolic 117 mm Hg 02/20/2025 Weight 203.0 lbs 02/20/2025 BMI 34.84 kg/m2 02/20/2025 Encounters Encounter Location Date Provider Diagnosis [facility] [address] Phan [address] [place] [address] 05/23/2024 Raquel Phan Hypothyroidism, unspecified E03.9 ; Personal history of malignant neoplasm of thyroid Z85.850 ; Other fatigue R53.83 ; Obesity, unspecified E66.9 and Abnormal weight gain R63.[address] Phan [address] [place] [address] 08/21/2024 Raquel Phan Hypothyroidism, unspecified E03.9 ; Personal history of malignant neoplasm of thyroid Z85.850 ; Obesity, unspecified E66.9 ; Dietary counseling and surveillance Z71.3 and PCOS (polycystic ovarian syndrome) E28.[address] Phan [address] [place] [address] 02/20/2025 Raquel Phan Hypothyroidism, unspecified E03.9 ; Personal history of malignant neoplasm of thyroid Z85.850 ; PCOS (polycystic ovarian syndrome) E28.2 ; Obesity, unspecified E66.9 and Dietary counseling and surveillance Z71.[address] [address] 08/07/2024 Raquel Phan [address] [address] 08/07/2024 Raquel Phan [address] [place] [address] 08/21/2024 Raquel Phan Hypothyroidism, unspecified E03.9 Assessments Encounter Date Diagnosis (ICD Code) Assessment Notes Treatment Notes Treatment Clinical Notes Section Notes 05/23/2024 Hypothyroidism, unspecified (ICD-10 - E03.9) 05/23/2024 Personal history of malignant neoplasm of thyroid (ICD-10 - Z85.850) 08/21/2024 Hypothyroidism, unspecified (ICD-10 - E03.9) 08/21/2024 Hypothyroidism, unspecified (ICD-10 - E03.9) 02/20/2025 Hypothyroidism, unspecified (ICD-10 - E03.9) 08/21/2024 Personal history of malignant neoplasm of thyroid (ICD-10 - Z85.850) 02/20/2025 Personal history of malignant neoplasm of thyroid (ICD-10 - Z85.850) 08/21/2024 Obesity, unspecified (ICD-10 - E66.9) 05/23/2024 Other fatigue (ICD-10 - R53.83) 05/23/2024 Obesity, unspecified (ICD-10 - E66.9) 08/21/2024 Dietary counseling and surveillance (ICD-10 - Z71.3) Spent 15 minutes preventative counseling patient on dietary recommendations and changes in setting of hyperglycemia- need to restrict refined sugars and processed foods and incorporate up to 150 minutes of moderate level activity weekly. 02/20/2025 PCOS (polycystic ovarian syndrome) (ICD-10 - E28.2) 08/21/2024 PCOS (polycystic ovarian syndrome) (ICD-10 - E28.2) 02/20/2025 Obesity, unspecified (ICD-10 - E66.9) 05/23/2024 Abnormal weight gain (ICD-10 - R63.5) 02/20/2025 Dietary counseling and surveillance (ICD-10 - Z71.3) Spent 15 minutes preventative counseling patient on dietary recommendations and changes in setting of hyperglycemia- need to restrict refined sugars and processed foods and incorporate up to 150 minutes of moderate level activity weekly. 05/23/2024 Other Assessment and Plan: 1. History of papillary and follicular thyroid cancer- Increase Tirosint dose to 150 mcg daily- Thyroglobulin panel to assess for residual thyroid tissue or parathyroid involvement- Repeat thyroid ultrasound in 6 months to monitor growth in the left thyroid bed 2. Elevated TSH (3.57)- Increase Tirosint dose to 150 mcg daily- Monitor TSH, free T4, and thyroglobulin panel in 6 weeks 3. Weight gain and possible insulin resistance- Encourage patient to continue with Nature's Ozempic and juicing regimen- Monitor weight and discuss further lifestyle modifications if needed 4. Menstrual cycle irregularities and possible estrogen dominance- Check estrogen levels on day 20 of the patient's menstrual cycle- Monitor for any changes in menstrual cycle after Tirosint dose increase 5. Joint pain and swelling- Consider an anti-inflammatory regimen- Monitor for improvement after Tirosint dose increase 6. Avascular necrosis in the hip- Continue follow-up with hip doctor for management and monitoring 7. Possible cortisol imbalance- Perform dexamethasone suppression test- Monitor cortisol levels and adjust treatment plan accordingly Follow-up:- Schedule a follow-up appointment in 6 weeks to review lab results and assess the patient's response to the increased Tirosint dose and other interventions. Spent 45 minutes preparing to see the patient (ex review of tests/chart), obtaining and / or reviewing separately obtained history, performing a medically appropriate examination and/or evaluation, counseling and educating the patient/family/careg iver, ordering medications, tests, or procedures, referring and communicating with other health child care coordinator, documenting clinical information in the electronic or other health record, independently interpreting results and communicating results to the patient/family/careg iver and care coordinating patient plan. 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 08/21/2024 Other 1. History of Thyroid Cancer- Continue current thyroid hormone replacement therapy (150 mcg, presumably levothyroxine)- Schedule ultrasound in May 2025 for routine surveillance- Follow-up appointment in 6 months (February 2025)- Repeat labs prior to next appointment 2. Possible Mild Polycystic Ovary Syndrome (PCOS)- Patient to discuss symptoms with box toe buffer at upcoming appointment on September 17- Consider spironolactone for management of androgenic symptoms if needed- Recommend natural supplements such as myoinositol or berberine to address inflammation 3. Persistent Cough- Trial of allergy medication- Monitor symptoms and follow up if cough does not improve 4. Health Anxiety- Recommend magnesium glycinate supplementation for potential symptom relief- Provided patient with reacted magnesium supplement (30-60 day supply)- Plan to check magnesium levels at next appointment Spent 25 minutes preparing to see the patient (ex review of tests/chart), obtaining and / or reviewing separately obtained history, performing a medically appropriate examination and/or evaluation, counseling and educating the patient/family/careg iver, ordering medications, tests, or procedures, referring and communicating with other health child care coordinator, documenting clinical information in the electronic or other health record, independently interpreting results and communicating results to the patient/family/careg iver and care coordinating patient plan. 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 02/20/2025 Soraida Walker is an endocrinology patient with history of papillary and follicular thyroid cancer, PCOS, and fatty liver being managed for thyroid hormone optimization and reproductive health concerns. Thyroid cancer, post-surgical managementAssessment : Patient has history of papillary and follicular thyroid cancer currently on thyroid hormone replacement therapy. TSH is on the lower side as desired for cancer suppression, with negative thyroglobulin panel indicating good disease control. Currently on 150 mcg levothyroxine, increased from previous 125 mcg dose. Free T4 levels are acceptable.Plan:- Adjust tirosint to 137 mcg (prescription sent)-generic levothyroxine caused acne/diffuse rash on shoulders, cannot take generic- Continue thyroid suppression therapy with TSH monitoring PCOS with ovarian cystsAssessment: Patient has reproductive system problems including ovarian cysts and inconsistent menstrual cycles consistent with PCOS. LH/FSH ratio imbalance and low progesterone levels contributing to symptoms.Plan:- Start [facility] for PCOS management to help regulate FSH/LH balance (one scoop of powder with 4-6 ounces of water)- Consider iodine supplementation 150 micrograms daily for cyst management- Order iodine level and LH/FSH labs- Order pelvic ultrasound to monitor previously identified growth (6 months since last imaging) Fatty liver diseaseAssessment: Patient reported fatty liver with previous upper abdominal pain in left and right regions. Recent MRI was normal. Fatty liver score of 0.41 is reassuring and within good range.Plan:- Continue current management given good fatty liver score HyperlipidemiaAssess ment: Cholesterol levels are showing improvement. Patient is seeing Dr. Pugh for weight management and considering tirzepatide therapy but has concerns due to thyroid cancer history. Recent research demonstrates no correlation between tirzepatide and medullary thyroid cancer, and patient's cancer history was papillary and follicular, not medullary type.Plan:- Continue current lipid management- Patient to continue follow-up with Dr. Pugh for weight management- Tirzepatide may be considered given lack of contraindication with patient's specific thyroid cancer history Spent 25 minutes preparing to see the patient (ex review of tests/chart), obtaining and / or reviewing separately obtained history, performing a medically appropriate examination and/or evaluation, counseling and educating the patient/family/careg iver, ordering medications, tests, or procedures, referring and communicating with other health child care coordinator, documenting clinical information in the electronic or other health record, independently interpreting results and communicating results to the patient/family/careg iver and care coordinating patient plan. Patient alert and oriented x 4 and aware of discussion noted above and in agreeance to plan in management of postoperative hypothyroidism, obesity/weight management, PCOS and hx of papillary/follicular thyroid ca history. Plan Of Treatment Pending Test Test Name Order Date *US HEAD AND NECK/THYROID [id number] 02/21/20 25 Next Appt Details Provider Name:Raquel Phan, 08:00:00 AM, [address] [place] [address], [place], [address], Insurance Providers Payer Name Payer Address Payer Phone Subscriber Number Group Number Insured Name Patient Relationship to Insured Coverage Start Date Coverage End Date Jah [facility] [address] [place] [address] [id number] Denise Stein Self - patient is the insured Medical (General) History Medical History History ICD Code hypothyroidism thyroid cancer; papillary and follicular thyroidectomy Surgical History Surgery Date(Month/Year) thyroidectomy 11/2018 LEEP 2019 2023
--- OUTSIDE RECORDS SUMMARY | 2025-04-13 00:21 | XMS_ITS | Data Portability ---
Author Organization [place] - [id number] Address [address] [place] [address] Assessment Encounter Date Assessment Date Assessment LastModified by Organization Details LastModified Time 09/17/2024 09/17/2024 Dr Pugh [facility], tested metabolic screening and giving supplements. last period was preceded by spotting, had changed her diet to REMOVE fat d/t fatty liver per pcp guidance. long d/w pt about appropriate diet, animal foods, avoid HFCS etc. she'll see derm for a lesion under R axilla that won't go away, 5mm firm red thought was acne cyst and squeezed now won't go away. no evidence infection. [email or web address] Not available 09/17/2024 09:21:38 Plan of Treatment Reminders Order Date Submit Date Provider Last Modified By Organization Details Last Modified Time Details Appointments ANNUAL- EST 15 2025 09:15A M AUGUSTA WALLACE MD Not available Not available Not available Lab None recorded. Referral None recorded. Procedures None recorded. Surgeries None recorded. Imaging US, pelvis 2024 025 [email or web address] Not available 03/03/2025 08:57:15 US, transvagi nal 2024 025 [email or web address] Not available 03/03/2025 08:57:15 US, breast, bilateral 2024 025 [email or web address] [facility] (Central Scheduling), [address], [place], [address], 11/10/2024 10:46:34 US, pelvis, transabdo ryley + transvagi nal 2024 025 [facility] ([facility]), [address] [place], [address], 11/10/2024 10:46:34 Medication Orders None recorded. Patient TargetsNo targets recorded. Patient Instructions Encounter Date Encounter Id Patient Instructions Last Modified By Organization Details Last Modified Time 11/03/2024 [id number] - Monitor menstrual cycle regularities and any pelvic symptoms. - Prepare for the possibility of a pelvic ultrasound at the local hospital, and ensure all necessary insurance checks are completed for breast ultrasound. - Report any significant changes or escalation in pelvic pain. [email or web address] Not available 11/04/2024 16:04:35 We reviewed the current symptoms of irregular menstruation possibly associated with ovarian cysts. I explained that a pelvic ultrasound is warranted to properly assess any abnormalities contributing to her symptoms. In addressing dense breast tissue complications with mammograms, we opted for a direct ultrasound to avoid unnecessary repeat imaging. The patient was informed about the process of insurance approval for this diagnostic route. We also reviewed the importance of observing any changes in symptoms, particularly concerning pelvic discomfort or changes in menstrual flow. I advised the patient to follow up with the results of the ultrasounds to further tailor her management plan. Pending insurance authorization, the patient will have a breast ultrasound scheduled to assess the dense breast tissue without the preliminary mammogram burden. Additionally, any exacerbation in symptoms or irregularities should be promptly reported for re-evaluation. [email or web address] Not available 11/04/2024 16:05:05 Reason for Referral None Reported. Results Created Date Observation Date Name Description Value Unit Range Abnormal Flag Note LastModifiedBy Organization Detail LastModifiedTime 11/29/1911/27/2024 US, pelvi s, trans abdom inal + trans vagin al No observ ation record ed. [email or web address] [facility] [address], [place], [address], 01/27/2025 11:45:33 03/03/20 25 03/03/2025 ultra sound image s RAD adollpollard [employer] [employer] [id number] 03/03/2025 16:03:39 03/03/20 25 03/03/2025 US, trans vagin al No observ ation record ed. [email or web address] Not Available 2024 12:13:54 Result Notes None recorded. Problems Name Problem SNOMED Code Status Onset Date Resolution Date Notes Provider Name and Address Organization Details Recorded Time Primary malignan t neoplasm of thyroid gland 77685928 Active Thyroid cancer, Problem Code: 193; Problem Code Type: ICD-9; Not Available [facility] 5 12:22:37 Hashimot o thyroidi tis 93869321 Active 2024 Dianne Matos(TER M) null, [place] [facility] 5 14:41:23 Acquired hypothyr oidism 219441478 Active 2024 Dianne Matos(TER M) null, [place] [facility] 5 14:41:32 Past pregnanc y history of pre-ecla mpsia 12157876314 9100 Active 2024 Dianne Matos(TER M) null, [place] [facility] 5 14:41:46 COVID-19 466431495 Completed 202410/31/2024 Suzi Yang null, [place] [facility] 5 09:26:07 Extremel y dense breast composit ion 560890371 Active 2024 RASHEED FENTON [address], [place], [address] , [facility] - [facility] 5 10:40:49 Irregula r periods 91142584 Active 2024 RASHEED FENTON [address], [place], [address] , [place] [facility] 5 10:40:58 Ovarian pain 158437313 Active 2024 RASHEED FENTON [address], [place], [address] , [facility] for [facility] 10:41:13 Problem Notes None recorded. Procedures Surgical History Date Name Laterality Status Provider Name and Address Organization Details Recorded Time 11/07/19 Date of Last Pap Smear completed Dianne Ketten(TERM) [facility] 09/11/2024 14:45:07 10/20/19 Date of Last Mammogram completed Dianne Ketten(TERM) [facility] 09/11/2024 14:49:39 section completed Dianne Ketten(TERM) [facility] 09/11/2024 14:53:52 thyroidectomy completed Dianne Ketten(TERM) [facility] 09/11/2024 14:54:00 LEEP completed Princess Paige [facility] 09/17/2024 08:55:25 breast biopsy and related procedures completed Not Available [facility] 09/18/2024 14:01:51 Imaging Results None recorded. Procedure Notes None recorded. Medical Equipment None Reported. Allergies Allergen ID Allergen Name Allergen Category Reaction Reaction Severity Criticality Documentation Date Start Date Code Code System Note Provider Name and Address Organization Details Recorded Time 327024 iodine medicatio n itching Not available Not available 09/11/2024 5933 RxNorm Dianne Ketten(TE RM) null, [facility] 14:40:54 Medications Name Sig Start Date Stop Date Status Note LastModified by Organization Details LastModified Time dexamethaso ne 1 mg tablet TAKE 1 TABLET BY MOUTH AT 10PM THE NIGHT BEFORE 8AM CORTISOL 09/17 completed Not Available Not Available Not Available levothyroxi ne 150 mcg tablet Take 1 tablet every day by oral route. 09/17 completed Not Available Not Available Not Available Vitamin D2 1,250 mcg (50,000 unit) capsule Take by oral route. active Not Available Not Available No t Available Vitamin C active Not Available Not Dorothy ilable Not Available Tirosint 125 mcg capsule TAKE 1 CAPSULE BY MOUTH DAILY 09/17 completed Not Available Not Available Not Available Tirosint 150 mcg capsule TAKE 1 CAPSULE BY MOUTH DAILY IN THE MORNING ON AN EMPTY STOMACH active Not Available Not Available No t Available sodium,pota ssium,mag sulfates 17.5 gram-3.13 gram-1.6 gram oral soln USE DIRECTED DAY BEFORE COLONOSCO PY 09/17 completed Not Available Not Available Not Available Vitals Date Recorded Body weight Body mass index (BMI) Body height Systolic And Diastolic Provider Name and Address Organization Details Last Updated DateTime 09/17/2024 81901.84 g 35 kg/m2 162.56 cm 116/68 mm[Hg] Princess Paige [facility] for [facility] 09/17/2024 09:00:45 Date Recorded Body height Body mass index (BMI) Body weight Systolic And Diastolic Provider Name and Address Organization Details Last Updated DateTime 11/03/2024 162.56 cm 35.1 kg/m2 77787.28 g 112/68 mm[Hg] Suzi Yang [facility] for [facility] 11/03/2024 09:52:24 Social History Question Answer Notes LastModified by [employer] Details LastModified Time Tobacco Smoking Status Never Smoker Dianne Carlo(TERM) [facility], [facility] for [facility] 09/11/2024 14:53:39 Do You Have An Advance Directive? No [email or web address] Information not available 09/17/2024 What Is Your Level Of Caffeine Consumption? Occasional [email or web address] Information not available 09/17/2024 What Type Of Diet Are You Following? REGULAR Information not available 09/17/2024 What Is Your Relationship Status? Information not available 09/11/2024 Sex: Female Functional Status Question Answer Note LastModified by [employer] Details LastModified Time Do you use any illicit or recreational drugs? No Information not available 09/11/2024 What is your level of alcohol consumption? None Information not available 09/11/2024 Are you currently employed? No [email or web address] Information not available 09/17/2024 What is your occupation? homemaker Information not available 09/11/2024 Mental Status None recorded. Family History Relationship Description Onset Age of this Age Resolved Age Notes LastModified by Organization Details LastModified Time Maternal Grandfather Malignant neoplasm of colon [email or web address] Not available 2024 08:55:25 Maternal Grandfather Malignant neoplastic disease 72 COLON [email or web address] Not available 10/19 09:54:35 Maternal Grandmother Malignant neoplastic disease 83 stomac h [email or web address] Not available 11/03/2024 09:54:40 Unspecified Relation Malignant neoplastic disease Cancer BREAST matern al Aunt'; [email or web address] Not available 11/03/2024 09:54:21 Notes:hx pt thyroid Medical History Condition Response ID-Other Y Cancer-Other Y Cancer- Genetic screening Endocrinology- Hyperthyroidism Y Endocrinology- Hypothyroidism Y Endocrinology- Thyroid Problems Y Gynecological History Statement/Question Response Date of Last Mammogram 10/19/2022 Flow Moderate History of Fibroids N Date of LMP 11/02/2024 Current Control Method: Vasectomy - Partner Cologuard Testing N History of Recurrent Ovarian Cysts Y HPV Vaccine Completed Post Menopausal Hormone Therapy User Nev er Date of Last HPV Test 11/06/2022 Date of Last Cholesterol Screening 12/19 13 History of PCOS N History of Infertility N History of Cervical Dysplasia N History of Vulvar Dysplasia N Duration of Flow (days) 7 Current Control Method Partner Vas ectomy Age at Menarche 13 History of Endometriosis N Sexually Active? Y History of Dysmenorrhea N Menses Monthly Y Date of Last Pap Smear 11/06/2022 Sexual Problems? N History of Sexually Transmitted Infectio n N Obstetrics History GPAL:G 2 P 1 1 0 2 Type Value Full Term 1 Premature 1 Living 2 Total 2 Immunizations Vaccine Type Date Status Note Provider Nam e and Address Organization Details Recorded Time influenza, unspecified formulation 05/21/2020 completed Dianne Matos(TERM) null, [place] - [facility] 09/11/2024 14:42:36 Tdap 05/21/2015 completed Dianne Matos(TERM) null, [place] - [facility] 09/11/2024 14:43:25 Past Encounters Encounter ID Performer Location Encounter Start Date Encounter Closed Date Diagnosis/Indication Diagnosis SNOMED-CT Code Diagnosis ICD10 Code Diagnosis IMO Codes Diagnosis Note [id number] AUGUSTA WALLACE MD [id number] [place] [address] 09/17/2024 08:42:59 09/17/2024 09:26:47 Gynecologic examination 31992544 Z01.419 354382 [id number] AUGUSTA WALLACE MD [id number] [place] [address] 11/03/2024 09:27:25 11/03/2024 10:37:29 Extremely dense breast composition 846266308 R92.343 9150014227 Irregular periods 908095 07 N92.6 410819 Ovarian pain 726649883 N 94.[address]77[id number], MD [id number] 7 [facility] [address] [place] [address] 03/03/2025 08:17:17 03/03/2025 08:57:15 Pain in pelvis 91729584 R10.20 43032 Cyst of right ovary 1223 191795 9560139 N83.201 [id number] Health Concerns Section Related Observation LastModified by Organization Detai ls LastModified Time None Recorded Concern Status LastModified by Organization Details LastModified Time None Recorded Advance Directives Directive N: Payers Insurance Date Sequence Insurance Name Policy Number Policy Caballero Covered Member ID Caballero Member ID Guarantor Name 02/28/2025 1 [place] 112 Agapito Stein [id number] Denise Stein Notes Date Note Type Note Provider Name and Address Organization Details Recorded Time 5 text/html Annual [employer] - McwhcReported by PatientGenitourinary symptomsFor menstrual cycle, patient reportsnormal menses. For urinary symptoms, patient reportsno hematuriaandno incontinence. For vulvar complaints, patient reportsnone. For vaginal complaints, patient reportsnone. For gastrointestinal symptoms, patient reportsno gastrointestinal symptoms.Breast symptomsFor breast, patient reportsno breast pain,no breast lump, andno nipple discharge.ContraceptionFo r current contraception, patient reportspartner had vasectomy.Endocrine symptomsFor sexual complaints, patient reportsno sexual complaints,no pain during intercourse/sexual function, andnormal libido. For menopausal symptoms, patient reportsno menopausal symptomsandnormal vaginal lubrication.Psychological symptomsFor psychological symptoms, patient reportsno depression,no anxiety, andno pmdd. AUGUSTA WALLACE MD [address], [place], [address], [facility] 09/17/2024 09:22:06 5 text/html ROS as noted in the HPI - The patient is a 33-year-old female presenting with irregular menstruation and breast ultrasound referral concerns. - The patient reports having her last normal menstrual period from August 25 to , experiencing regular menstruation cramps. - Prior to this, the patient notes experiencing menstrual spotting with cramps from August 01 to , which lasted seven days but was not a full menstrual flow. - The patient reports an absence of menstruation following the episode in August until it resumed yesterday. - She describes a lingering sensation of burning and fullness localized around the right ovary, persisting for a few weeks post the last normal period. - There is still occasional pressure in the lower right quadrant, with resolution of the burning sensation. - The patient has been previously identified to have dense breast tissue, complicating mammogram imaging, necessitating adjunctive breast ultrasounds. - Notable laboratory findings include an elevated DHEA sulfate level; however, the Testosterone and insulin levels were reported normal. - Previously evaluated for PCOS, the patient lacks sufficient criteria for diagnosis as per recent evaluations. - A longstanding thyroid condition managed to keep TSH levels low, aiming to prevent cancer recurrence from previous thyroid surgery. RASHEED FENTON [address], [place], [address], [facility] 11/04/2024 16:05:39 OBGyn Episode Ob Episode Information Episode Created Date Number of Fetuses Patient Bloodtype Patient rh Status Prepregnancy Weight lbs Domestic Partner Domestic Partner Phone Father Name Narcotics And Vice Detective Status 09/12/19 25 1 CLOSED Fetus Data First Name Last Name Admitted to NICU Weight (g) Sex Living Outcome Pediatric Complications Fetus ID Race Codes Race Delivery Type 4053.75 1704 M Full Term [id number] Primary Igor Calculation Initial Igor Date Initial Exam Date Initial Exam Provider Initial Ultrasound Date Last Menstrual Period Date Ultra Sound Weeks Gestation 0 Eighteen To Twenty Week Igor Update Ultra Sound Date Fundal Height At Umbil Quickening Date Ultra Sound Latest Weeks Gestation Final Igor Confirmed By Final Igor Confirmed Date Final Igor Date Ultra Sound Latest Days Gestation 0 0 Menstrual History Last Menstrual Date Menses Monthly On Bcp Conception Prior Menses Frequency Hcg Plus Date Menarche Onset Age Delivery Information Delivery Date Delivery Type Labor Anesthesia Weeks Gestation Incision Type Labor Labor Length Hrs Delivered By Post Complications Tubal Sterilization Discharge Date Comments 3 40 Discharge Information Feeding Method Contraceptive Method Maternal HG B and HCT Levels Ob Episode Information Episode Created Date Number of Fetuses Patient Bloodtype Patient rh Status Prepregnancy Weight lbs Domestic Partner Domestic Partner Phone Father Name Narcotics And Vice Detective Status 09/12/19 25 1 CLOSED Fetus Data First Name Last Name Admitted to NICU Weight (g) Sex Living Outcome Pediatric Complications Fetus ID Race Codes Race Delivery Type 3316.66 [id number] M Prematur e [id number] Repeat Igor Calculation Initial Igor Date Initial Exam Date Initial Exam Provider Initial Ultrasound Date Last Menstrual Period Date Ultra Sound Weeks Gestation 0 Eighteen To Twenty Week Igor Update Ultra Sound Date Fundal Height At Umbil Quickening Date Ultra Sound Latest Weeks Gestation Final Igor Confirmed By Final Igor Confirmed Date Final Igor Date Ultra Sound Latest Days Gestation 0 0 Menstrual History Last Menstrual Date Menses Monthly On Bcp Conception Prior Menses Frequency Hcg Plus Date Menarche Onset Age Delivery Information Delivery Date Delivery Type Labor Anesthesia Weeks Gestation Incision Type Labor Labor Length Hrs Delivered By Post Complications Tubal Sterilization Discharge Date Comments 6 36 Discharge Information Feeding Method Contraceptive Method Maternal HG B and HCT Levels
--- OUTSIDE RECORDS SUMMARY | 2025-04-13 00:21 | XMS_ITS | Data Portability ---
Author Organization [place] - [facility] [employer], Main Office Address [address] [place] [address] Care Team Providers Care Mailing Manager Name Role Phone [facility] Primary Care Provider Assessment No assessment recorded. Plan of Treatment Reminders Order Date Submit Date Provider Last Modified By Organization Details Last Modified Time Details Appointments None recorded. Lab None recorded. Referral None recorded. Procedures None recorded. Surgeries None recorded. Imaging None recorded. Medication Orders Tirosint 150 mcg capsule 2022 023 [email or web address] Not available 22:37:41 Patient TargetsNo targets recorded. Patient InstructionsNo instructions recorded. Reason for Referral None Reported. Results Created Date Observation Date Name Description Value Unit Range Abnormal Flag Note LastModifiedBy Organization Detail LastModifiedTime 11/03/1911/01/2022 US, thyro id No observ ation record ed. [email or web address] [facility] [address], [place], [address], 11/12/2022 11:01:16 04/01/2004/01/2025 imagi ng inter preta tion No observ ation record ed. [facility] [address], [place], [address], 04/02/2025 16:06:07 Result Notes None recorded. Problems Name Problem SNOMED Code Status Onset Date Resolution Date Notes Provider Name and Address Organization Details Recorded Time Papillary thyroid carcinoma 229682854 Active 2018 Not Available [facility] 21:18:53 Postoperative hypothyroidis m 54857752 Active 2019 Not Available [facility] 3 21:18:53 Problem Notes None recorded. Medical Equipment None Reported. Allergies Allergen ID Allergen Name Allergen Category Reaction Reaction Severity Criticality Documentation Date Start Date Code Code System Note Provider Name and Address Organization Details Recorded Time 81126 Iodinated contrast media (substanc e) medicatio n Not available Not available Not available 07/19/2022 27073 2004 SNOMED Not Available [facility] 3 21:20:00 Medications Name Sig Start Date Stop Date Status Note LastModified by Organization Details LastModified Time cyclobenz aprine 10 mg tablet 11/27 completed Not Available Not Available Not Available azithromy rosy 250 mg tablet TAKE DIRECTED 04/29 completed Not Available Not Available Not Available ibuprofen 800 mg tablet 11/27 completed Not Available Not Available Not Available hydrocodo ne 5 mg-acetam inophen 325 mg tablet TAKE 1 TABLET BY MOUTH EVERY 6 HOURS NEEDED FOR ACUTE PAIN 11/27 completed Not Available Not Available Not Available Claritin 10 mg tablet Take 1 tablet every day by oral route. 08/03 completed Not Available Not Available Not Available meloxicam 15 mg tablet 01/01 completed Not Available Not Available Not Available Synthroid 125 mcg tablet TAKE 1 TABLET BY MOUTH EVERY DAY IN THE MORNING FOR 90 DAYS active Not Available Not Available No t Available famotidin e 40 mg tablet TK 1 T PO BID FOR 14 DAYS 11/27 completed Not Available Not Available Not Available phentermi ne 15 mg capsule TK 1 C PO BID BEFORE BREAKFAS T AND LUNCH 02/15 completed Not Available Not Available Not Available potassium chloride ER 10 mEq tablet,ex tended release 11/27 completed Not Available Not Available Not Available Thyrogen 1.1 mg (0.9 mg/mL final concentra tion) intramusc ular solution Inject 0.9 mg every day by intramus cular route in the morning for 2 days. 01/01 completed Not Available Not Available Not Available aspirin 81 mg tablet,de layed release TAKE 2 TABLET ORALLY ONCE DAILY 11/27 completed Not Available Not Available Not Available amoxicill in 875 mg tablet TAKE 1 TABLET BY MOUTH EVERY 12 HOURS FOR 10 DAYS 11/27 completed Not Available Not Available Not Available alprazola m 0.25 mg tablet TK 1 T PO BID PRN 01/01 completed Not Available Not Available Not Available dexametha sone 1 mg tablet Take 1 tablet as needed by oral route at bedtime for 1 day. active take dexa tablet at 10 pm night before 8 am cortisol Not Available Not Available Not Available cephalexi n 500 mg capsule 11/27 completed Not Available Not Available Not Available oseltamiv ir 75 mg capsule 01/01 completed Not Available Not Available Not Available prednison e 50 mg tablet Take one tablet 12 hours, 7 hours, and [address] for contrast allergy active Not Available Not Available No t Available levothyro xine 150 mcg tablet Take 1 tablet every day by oral route. 2021 active Not Available Not Available Not Avai lable indometha roys 25 mg capsule 01/01 completed Not Available Not Available Not Available Banophen 25 mg capsule TK 2 CS PO ONE HOUR PRIOR TO CT FOR CONTRAST ALLERGY 02/15 completed Not Available Not Available Not Available ibuprofen 600 mg tablet 04/07 completed Not Available Not Available Not Available methylpre dnisolone 4 mg tablets in a dose pack 12/23 completed Not Available Not Available Not Available fluticaso ne propionat e 50 mcg/actua tion nasal spray,genie pension U 1 SPR IEN QHS . NEEDS AN APPOINTM ENT IN 1 MONTH. 01/01 completed Not Available Not Available Not Available calcitrio l 0.25 mcg capsule TK 1 C PO BID 02/13 completed Not Available Not Available Not Available amoxicill in 875 mg-potass ium clavulana te 125 mg tablet 12/23 completed Not Available Not Available Not Available levothyro xine 08/03 completed Not Available Not Available Not Available Tirosint 125 mcg capsule Take 1 capsule every day by oral route in the morning for 30 days. 02/13 completed Not Available Not Available Not Available Tirosint 150 mcg capsule TAKE 1 CAPSULE BY MOUTH EVERY DAY IN THE MORNING active Not Available Not Available No t Available Vitamin D3 50 mcg (2,000 unit) capsule Take 1 capsule every day by oral route in the morning for 90 days. active Not Available Not Available No t Available Fluzone Quad (PF) 60 mcg (15 mcg x 4)/0.5 mL IM syringe PHARMACI ST ADMINIST ERED IMMUNIZA TION ADMINIST ERED AT TIME OF DISPENSI NG active Not Available Not Available No t Available Vitals Date Recorded Body weight Body temperature Heart rate Systolic And Diastolic Provider Name and Address Organization Details Last Updated DateTime 11/27/2022 95295.45 g 98.1 [degF] 80 /min 122/65 mm[Hg] HIRAM Newell [place] - [facility] [employer] 11/27/2022 15:40:47 Social History None recorded. Functional Status None recorded. Mental Status None recorded. Family History Nothing Reported Notes:Great aunt and cousin on mothers side Breast cancer Medical History No medical history recorded. Gynecological HistoryNo gynecological history recorded. Obstetrics History GPAL:G 0 P 0 0 0 0 Past Encounters Encounter ID Performer Location Encounter Start Date Encounter Closed Date Diagnosis/Indication Diagnosis SNOMED-CT Code Diagnosis ICD10 Code Diagnosis IMO Codes Diagnosis Note [id number] Raquel Phan MD [facility] [address] [place] [address] 04/07/2022 00:00:00 04/07/2022 14:29:34 [id number] Raquel Phan MD [facility] [address] [place] [address] 11/27/2022 15:02:23 12/11/2022 13:46:40 Postoperative hypothyroidism 60936072 E89.0 FT4 in range- TG panel negative- (TSH suppressed from biotin)- will transition back to tirosint for best absorption - 20 day samples provided of tirosint 150 mcg daily. She was reminded to take her tirosint on empty stomach with glass of water and wait one hour to eat or have her coffee in morning and up to 4 hours if ever taking any heartburn or reflux medication s to help optimize absorption . Discussed paleo like diet with restrictio n of GMOs to help with energy and to optimize absorption of vitamins and minerals and reduce inflammati on. Spent up to 20 minutes preparing to see the patient (eg, review of tests), obtaining and/or reviewing separately obtained history, performing a medically appropriat e examinatio n and evaluation , counseling and educating the patient, ordering medication s, tests, along with documentin g clinical informatio n in the electronic health record, ludwig felixy interpreti ng results and communicat ing results to the patient. RTC in 6 months. Health Concerns Section Related Observation LastModified by Organization Detai ls LastModified Time None Recorded Concern Status LastModified by Organization Details LastModified Time None Recorded Advance Directives Directive None Recorded Payers Insurance Date Sequence Insurance Name Policy Number Policy Caballero Covered Member ID Caballero Member ID Guarantor Name 12/11/2022 1 [place] 112 Agapito Stein [id number] Denise Emil Notes Date Note Type Note Provider Name and Address Organization Details Recorded Time 11/27/2022 text/html ROS as noted in the HPI 31 yo female comes in for follow up in management of 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 last seen in Mar at that time we continued LT4 150 mcg daily-she was 7 months . At that time patient had re-established care as she was previously in [facility] with her family and recently restationed her in [place]. Her is son is currently 6 months and patient consistently. TG panel negative thyroid u/s from 11/01/22:normal u/s - no thyroid tissue Son was born on July 05. She is still her son. labs from 11/10:TSH <0.001 uIU/mlFT3 of 3.6 pg/mLglucose 87 mg/dLCr normalALT 56 U/L Raquel Phan MD [address] [facility], [facility] [address], [place], [address], [place] - [facility] [employer] 11/27/2022 22:41:33 OBGyn Episode No OBEpisode recorded.
--- OUTSIDE RECORDS SUMMARY | 2025-04-13 00:21 | XMS_ITS | Clinical Summary ---
Author Organization [facility] Address [address] [place] [address] Care Team Providers Care Durability Engineer Name Role Phone Jessica López PA-C Primary Care Provider [phone] Allergies Active Allergy Reactions Criticality Noted Date Comments Iodine Rash Low 11/14/2018 Shellfish Allergy Unknown 05/07/2023 Medications levothyroxine (SYNTHROID) 150 MCG tablet Take 1 tablet (150 mcg total) by mouth every morning. Active vitamin D3 (CHOLECALCIFEROL ) 125 mcg Tab Take 1 tablet (125 mcg total) by mouth daily. Active ferrous sulfate, 65 mg elemental, 325 (65 FE) MG tablet Take 1 tablet (325 mg total) by mouth daily with breakfast. Active Active Problems Problem Noted Date Diagnosed Date Dysphagia, unspecified type 08/28/2023 Esophageal obstruction due to food impaction 07/05/2022 complication 05/22/2022 Vaginal bleeding in , third trimester 0 05/21/2022 Postoperative hypothyroidism 11/20/2019 Neck mass 10/31/2019 Papillary carcinoma of thyroid 12/05/2018 Family History Medical History Relation Comments Hypertension Father Breast Cancer Maternal Aunt 1 Cancer Maternal Aunt 2 Cancer Maternal Grandfather Arthritis Maternal Grandmother Cancer Maternal Grandmother Breast Cancer Other 1 APPROX IN 20'S P ER PT Breast Cancer Other 2 APPROX 30'S PER PT Relation Status Comments Father Alive Maternal Aunt 1 Maternal Aunt 2 Maternal Grandfather Maternal Grandmother Mother Alive Other 1 Other 2 Social History Tobacco Use Types Packs/Day Years Used Date Smoking Tobacco: Never Smokeless Tobacco: Never Tobacco Cessation:Counseling Given: Not Answered Alcohol Use Standard Drinks/Week Comments No 0 (1 standard drink = 0.6 oz pur e alcohol) [facility] Utilities Answer Date Recorded In the past 12 months has th e electric, gas, oil, or water company threatened to shut off services in your home? No 05/08/2023 Humiliation, Afraid, Rape, and Kick questionnair e Answer Date Recorded Within the last year, have y ou been afraid of your partner or ex-partner? No 05/08/2023 Within the last year, have y ou been humiliated or emotionally abused in other ways by your partner or ex-partner? No Within the last year, have y ou been kicked, hit, slapped, or otherwise physically hurt by your partner or ex-partner? No 05/08/2023 Within the last year, have y ou been raped or forced to have any kind of sexual activity by your partner or ex-partner? No 05/08/2023 Social Connection and Isolation Panel Answer Date Recorded In a typical week, how many times do you talk on the phone with family, friends, or neighbors? More than three times a week 05/08/2023 How often do you get togethe r with friends or relatives? More than three times a week 05/08/2023 How often do you attend [facility] or nondenominational services? More than 4 times per year 05/08/2023 Do you belong to any clubs o r organizations such as holiness groups, unions, fraternal or athletic groups, or school groups? No 05/08/2023 How often do you attend meet ings of the clubs or organizations you belong to? Never 05/08/2023 Are you , , di vorced, , never , or living with a partner? 05/08/2023 AUDIT-C Answer Date Recorded Q1: How often do you have a drink containing alcohol? Never 05/08/2023 Q2: How many drinks containi ng alcohol do you have on a typical day when you are drinking? Patient does not drink Q3: How often do you have si x or more drinks on one occasion? Never 05/08/2023 Overall Financial Resource Strain (CARDIA) Answe r Date Recorded How hard is it for you to pa y for the very basics like food, housing, medical care, and heating? Somewhat hard 05/08/2023 PHQ-2 Answer Date Recorded Patient Health Questionnaire-2 Score 0 10/27/2022 [facility] [place] [facility] - Occupational Stress Questionnaire Answer Date Recorded Do you feel stress - tense, restless, nervous, or anxious, or unable to sleep at night because your mind is troubled all the time - these days? To some extent 05/08/2023 Exercise Vital Sign Answer Date Recorde d On average, how many days pe r week do you engage in moderate to strenuous exercise (like a brisk walk)? 7 days 05/08/2023 On average, how many minutes do you engage in exercise at this level? 30 min 05/08/2023 Hunger Vital Sign Answer Date Recorded Within the past 12 months, y ou worried that your food would run out before you got the money to buy more. Never true 05/08/20 23 Within the past 12 months, t he food you bought just didn't last and you didn't have money to get more. Never true 05/08/2023 PRAPARE - Transportation Answer Date Re corded In the past 12 months, has l ack of transportation kept you from medical appointments or from getting medications? No 04/20 In the past 12 months, has l ack of transportation kept you from meetings, work, or from getting things needed for daily living? No 05/08/2023 Housing Stability Vital Sign Answer Herson e Recorded In the last 12 months, was t here a time when you were not able to pay the mortgage or rent on time? No 05/08/2023 In the last 12 months, how many places have you lived? 1 05/08/2023 In the last 12 months, was t here a time when you did not have a steady place to sleep or slept in a fpc (including now)? No 05/08/2023 Comments No Sex and Gender Information Value Date Recorded Sex Assigned at Not on file Legal Sex Female 10:17 AM CDT Gender Identity Not on file Sexual Orientation Not on file Last Filed Vital Signs Vital Sign Reading Time Taken Comments Blood Pressure 94/60 08/28/2023 2:54 PM CDT Pulse 71 08/28/2023 2:54 PM CDT Temperature 36.7 C (98.1 F) 05/08/2023 7:00 AM [facility] Respiratory Rate 16 08/28/2023 2:54 PM CDT Oxygen Saturation 99% 08/28/2023 2:54 PM CDT Inhaled Oxygen Concentration - - Weight 86.2 kg (190 lb) 10/02/2023 9:56 AM CDT Height 162.6 cm (5' 4) 10/02/2023 9:56 AM CDT Body Mass Index 32.61 10/02/2023 9:56 AM CDT Plan of Treatment Health Maintenance Due Date Last Done Comments Cervical Cancer Screening Pa p Smear (Age 30 to 64) Every 3 Years 1989 Annual Physical 1992 Hepatitis B Vaccines (1 of 3 - 19+ 3-dose series) 2008 HPV Vaccines (1 - 3-dose SCD M series) 2016 Cervical Cancer Screening Pa p with HPV Testing (Age 30 to 64) Every 5 Years 12/18/2019 Cervical Cancer Screening wi th HPV 12/18/2019 PHQ-2 (Physician Rincon) 05/21/2024 COVID-19 Vaccine (1 - 2024-2 6 season) 2025 Influenza Adult (#1) 2025 03/30/2021, 05/21/2020, 02/17/2020 DTaP, Tdap and Td Vaccines ( 2 - Td or Tdap) 05/21/2025 05/21/2015 Hepatitis C Completed 02/13/2022, 01/30/2020, 12/23/2018 Hepatitis A Vaccines Aged Out No long er eligible based on patient's age to complete this topic Meningococcal B Vaccine Aged Out No l onger eligible based on patient's age to complete this topic Meningococcal Vaccine Aged Out No tere kiara eligible based on patient's age to complete this topic Pneumococcal Vaccine: Pediatrics (0 to 5 Years) and At-Risk Patients (6 to 49 Years) Aged Out No longer eligible b ased on patient's age to complete this topic RSV Immunizations Under 20 Months Aged Out No longer eligible b ased on patient's age to complete this topic Procedures Procedure Name Priority Date/Time Associated Diagnosis Comments HEPATITIS C ANTIBODY Routine 02/13/2022 from Last 3 Months or Most Recently Relevant to Health Maintenance Results * HEPATITIS C ANTIBODY (02/13/2022) HEPATITIS C AB non-reacti ve Comment:actually drawn on us Default History Genericprovider LABORATORY Final Result from Last 3 Months or Most Recently Relevant to Health Maintenance Insurance Advance Directives Documents on File Type Date Recorded Patient Adjunct Faculty Instructor Expl anation Legal Documents 02/07/2021 12:50 PM RECVD & CMPLTD ATTY REQ. FOR HB B[facility]S [facility] * Full Code (Latest Code Status on File) Date Activated Date Inactivated Comments 05/08/2023 8:29 AM 05/08/2023 1:14 PM * Full Code Date Activated Date Inactivated Comments 07/06/2022 12:51 AM 07/08/2022 5:48 PM * Full Code Date Activated Date Inactivated Comments 07/05/2022 5:09 AM 07/06/2022 12:51 AM Care Teams Durability Engineer Relationship Specialty Start Date End Date Jessica López PA-C [address] [place] [address] [address] [place] [address] PCP - General PHYSICIAN AT RISK PARAPROFESSIONAL 03/10/22
--- OUTSIDE RECORDS SUMMARY | 2025-04-13 00:21 | XMS_ITS | Encounter Summary ---
Author Organization [facility] Address [address] [place] [address] Care Team Providers Care Epic Stork Specialists Name Role Phone Unknown, Notinfile Primary Care Provider Unavail able Reason for Visit * Auth/Cert Specialty Diagnoses / Procedures Referred By Tha wayne Referred To Contact Diagnoses Family hx of colon cancer Abdominal pain Family hx of colon cancer [Z80.0] Abdominal pain [R10.9] Procedures UT COLONOSCOPY FLX DX W/COLLJ SPEC WHEN PFRMD COLONOSCOPY Referral ID Status Reason Start Date Expiration Date Visits Re quested Visits Authorized [id number] 1 1 Encounter Details Date Type Department Care Team (Late st Contact Info) Description 10/07/2024 Hospital Encounter [facility] [address] [place] [address] Shanti Ramirez MD [address] [place] [id number] Social History Tobacco Use Types Packs/Day Years [...] on file Sexual Orientation Not on file documented as of this encounter Plan of Treatment Not on file documented as of this encounter Visit Diagnoses Diagnosis Family hx of colon cancer- Primary Family history of malignant neoplasm of gastrointestinal tract Abdominal pain Abdominal pain, unspecified site documented in this encounter Admitting Diagnoses Diagnosis Abdominal pain Abdominal pain, unspecified site Family hx of colon cancer Family history of malignant neoplasm of gastrointestinal tract documented in this encounter Care Teams Epic Stork Specialists Relationship Specialty Start Date End Date Unknown, Notinfile PCP - General 11/29/23 documented as of this encounter
--- NOTE | 2025-04-13 11:27 | WPDHPUPDATE1 ---
History and Physical Update Update Date/Time: 04/13/25 11:27 History and Physical has been reviewed, including an updated exam of the patient. There are NO changes in the patient's condition. Risks, benefits, and alternatives have been discussed and questions answered. Patient agrees to proceed with procedure.
--- NOTE | 2025-04-13 11:29 | WPDHPUPDATE1 ---
History and Physical Update Update Date/Time: 04/13/25 11:29 History and Physical has been reviewed, including an updated exam of the patient. There are NO changes in the patient's condition. Risks, benefits, and alternatives have been discussed and questions answered. Patient agrees to proceed with procedure.
--- NOTE | 2025-04-13 12:05 | P.PNAN_ITS ---
Anes - Eval Pre Procedure Procedure: Operation Date: 04/13/25 13:00 Proposed Procedures p Ultrasound Guided Wire Localized Excision Right Lower Quadrant Abdominal Wall Mass, Excision Right Axillary Cyst - Troy Crews MD Date/Time: 04/13/25 12:05 Pre Op Diagnosis: rt lower quadrant abdomen mass Patient Data Age: 34 Gender: F Height: 1.63 m Weight: 95.35 kg Allergies Allergy/AdvReac Type Severity Reaction Status Date / Time iodine Allergy Rash Verified 04/13/25 12:08 shellfish derived AdvReac Rash Verified 04/13/25 12:08 Home Medications ?Medication ?Instructions ?Recorded ?Confirmed ?Type cholecalciferol (vitamin D3) 10 10 mcg PO DAILY 04/13/25 History mcg (400 unit) capsule Tirosint 137 mcg capsule 137 mcg PO DAILY #90 caps 04/13/25 Rx (levothyroxine) Patient hx anesthesia problems: none Family hx anesthesia problems: none Results Review: All pre-operative results and documents have been reviewed as part of the pre- operative evaluation. [facility] Past Medical History Medical History History of LEEP (loop electrosurgical excision procedure) of cervix complicating Avascular necrosis of bone of right hip Hypothyroidism Shahzad's thyroiditis History of thyroid cancer 2019 papillary and follicular, BAKER high dose 2019, follow up dose 2019 and scan. Thyroid US q 6 mo. Small growth monitoring 2023. Goal TSh=0. [facility]. No oncologist. [facility] for oncologist previously. Surgical History Surgical History H/O thyroidectomy Previous section Family History Family History Mother No problems noted. Father No problems noted. Unknown Carcinoma of colon Stomach cancer Social History Social History Social History: 03/15/25 patient declined SDOH Smoking status: Never smoker Alcohol intake: never Substance use: never Substance use type: does not use Living arrangements: with family Occupation/Education: occupation Gender identity (if verbalized by the patient): Female Spiritual care concerns: No Exam Day of Procedure 04/13/25 12:05 Patient weight: obese
[2025-04-13 12:13] LABS: BEDSIDEPREGUCG Negative (Negative)
--- NOTE | 2025-04-13 12:13 | WPDANESEPPF ---
Anes - Initial Pre Proc Eval Procedure: Operation Date: 04/13/25 13:00 Proposed Procedures p Ultrasound Guided Wire Localized Excision Right Lower Quadrant Abdominal Wall Mass, Excision Right Axillary Cyst - Troy Crews MD Date/Time: 04/13/25 12:13 Surgeon: Troy Crews MD Pre Op Diagnosis: rt lower quadrant abdomen mass Patient Data Age: 34 Gender: F Height: 1.63 m Weight: 95.4 kg Allergies Allergy/AdvReac Type Severity Reaction Status Date / Time iodine Allergy Rash Verified 04/13/25 12:08 shellfish derived AdvReac Rash Verified 04/13/25 12:08 Home Medications ?Medication ?Instructions ?Recorded ?Confirmed ?Type cholecalciferol (vitamin D3) 10 10 mcg PO DAILY 11/24/22 04/13/25 History mcg (400 unit) capsule Tirosint 137 mcg capsule 137 mcg PO DAILY #90 caps 05/27/24 04/13/25 Rx (levothyroxine) Laboratory Tests 04/13/25 11:00 POC Urine HCG, Qual Negative (Negative) Patient hx anesthesia problems: none Family hx anesthesia problems: none Results Review: All pre-operative results and documents have been reviewed as part of the pre-operative evaluation. [facility] Past Medical History Medical History History of LEEP (loop electrosurgical excision procedure) of cervix complicating Avascular necrosis of bone of right hip Hypothyroidism Shahzad's thyroiditis History of thyroid cancer 2019 papillary and follicular, BAKER high dose 2019, follow up dose 2019 and scan. Thyroid US q 6 mo. Small growth monitoring 2023. Goal TSh=0. [facility]. No oncologist. [facility] for oncologist previously. Surgical History Surgical History H/O thyroidectomy Previous section Family History Family History Mother No problems noted. Father No problems noted. Unknown Carcinoma of colon Stomach cancer Social History Social History Social History: 03/15/25 patient declined SDOH Smoking status: Never smoker Alcohol intake: never Substance use: never Substance use type: does not use Living arrangements: with family Occupation/Education: occupation Gender identity (if verbalized by the patient): Female Spiritual care concerns: No Anes - Eval Final PreProcedure Day of Procedure 04/13/25 12:13 Patient weight: obese Lungs: normal air movement Airway: Mallampati scale class II Neurological: alert and oriented Last oral intake: >/= 8 hours ASA classification: II Emergent: no Anesthetic plan: proceed Anesthesia type and monitoring: general LMA and standard monitoring Results Review: All pre-operative results and documents have been reviewed as part of the pre-operative evaluation. Case discussed w Shoaib TIAN. Informed Consent: The patient's anesthetic plan and its attendant risks and benefits were discussed with the patient/family/POA. Questions were solicited and answers provided to the satisfaction of the patient/family/POA.
[2025-04-13] MEDS: ceFAZolin 2 GM in SODIUM CHLORIDE 0.9% IV 50 ML 100 ML IVPB (13:15)
[2025-04-13] MEDS: LACTATED RINGERS 1,000 ML 30 ML IV CONT ×2 (13:15→14:38)
[2025-04-13] MEDS: LIDO 1%/EPINEPHRINE 1:100,000 50 ML VIAL 30 ML INFILTRATE (13:51)
--- NOTE | 2025-04-13 14:01 | S_PTH ---
PATIENT: Denise Stein LOC: [facility] U#:[id number] AGE/SX: 34/F ROOM: RE04/13/[address]: Troy Crews MD : 1990 BED: DIS: 04/13/2025 SPEC #: [id number] RECD: 04/14/25 07:38 STATUS: JAYLAN REQ #: [id number] CARMELITA: 04/13/25 14:[address]: Troy Crews DEPT: [facility] Surgical RECD BY: Gagan Wiggins ENTERED: 04/14/25 07:38 SP TYPE: Surgical OTHR DR: Modseta Boo, WENDY Tissues: A - Mass B - Cyst Procedures: Hematoxylin and Eosin Stain Gross and Microscopic Level 3 Gross and Microscopic Level 4
[2025-04-13] MEDS: KETOROLAC 30 MG/ML VIAL (*BKC) IV PUSH (14:17)
--- NOTE | 2025-04-13 14:46 | P.OP_ITS ---
Procedure Note - Detailed Date of Procedure 04/13/25 Pre-op Diagnosis Right lower quadrant abdominal wall mass Right axillary cyst Post-op Diagnosis Same Procedure Performed Ultrasound-guided wire localized excision of right lower quadrant endometrioma Excision of right axillary cyst with 4.5cm intermediate layered wound closure. Surgeon Troy Crews MD Tar Worker Ninoska Easley [facility] Anesthesia General Indications Patient is a 34-year-old female who has had a prior . She has had a pinpoint area in the right lower quadrant abdominal wall which has been getting more painful over time. The pain seems to cycle with her menstrual periods. CT scan abdomen pelvis showed a small solid mass in the area sitting on top of the rectus fascia. Given her prior history of and mass that has pain the cycles with Mr.. This is likely an endometrioma. She also has a inclusion cyst in the right axilla which is going to be excised at the same time as the right lower quadrant abdominal wall mass. Findings The patient had a solid mass grossly consistent with endometrioma which was situated right lower quadrant the abdominal wall and adherent to the anterior rectus fascia but not extending into the rectus muscle. It measured 3x2.5cm. In the right axilla there was a small epidermal inclusion cyst measuring [id number]. It excised and an intermediate layered wound closure measuring 4.5cm was performed. Description of Procedure Prior to coming to the operating patient had an ultrasound guided localization of the mass with a hooked guidewire placed by the radiologist since it could not easily be palpated externally. She was then brought to the operating room where she was placed on the operating table and then general endotracheal anesthesia was administered. The time-out was then performed correctly identifying the patient as well as procedure to be performed. The abdomen and the right axilla were then prepped and draped usual sterile fashion. I 1st started by making a transverse incision to include the insertion site of the guidewire on the right lower quadrant abdominal wall. Dissection was then carried down through the subcu tissue electrocautery followed the shaft the guidewire down to the level of the anterior rectus fascia. Once down onto the fascia a can easily palpate the mass which seemed to be densely adherent to the anterior rectus fascia. Electrocautery I dissected around the mass freeing it from the surrounding subcutaneous tissues. I then excised the mass off of the rectus muscle taking a small portion of the anterior rectus fascia with the mass. The mass did not seem to extend into the rectus muscle fibers. The mass measured 3x2.5cm. It was sent to pathology for examination. I then irrigated out the incision sterile saline solution. Hemostasis was achieved electrocautery. The defect and anterior rectus fascia was then closed utilizing a running 0 absorbable V lock suture. The fascial defect closed easily without any significant tension. I then injected 1% lidocaine mixed with 0.5% Marcaine in the subcutaneous tissues underneath the rectus fascia. The subcu tissues were then closed utilizing multiple layers of interrupted 3-0 Vicryl sutures. The skin edges were approximated utilizing a running subcuticular 4 Monocryl suture. I then turned my attention towards excising off the right axillary inclusion cyst. Same local anesthetic mixture was then used to inject underneath and around the cyst for anesthetic effect. An oblique ellipse was then incised with the scalpel around the whole wall of the cyst. Dissection carried deeply down to the dermis with the scalpel electrocautery was used to completely excise out the inclusion cyst and the surrounding chronically inflamed fibrotic tissue. The cyst measured [id number]. It was sent to pathology for examination. Hemostasis in the incision was then utilized electrocautery. The incision was then closed with interrupted 3-0 Vicryl sutures in the subcutaneous tissues. The skin edges were then approximated utilizing a running subcuticular 4 Monocryl suture. The length of the intermediate layered wound closure was 4.5cm. Both incisions were then cleaned and then skin glue was applied. The patient tolerated the procedure well no complications. All sponges, needles, and instrument counts were correct at the end procedure. EBL was _30__cc. The patient was awakened and taken to recovery in stable and satisfactory condition. Implants None Estimated Blood Loss 30 Drains No Packing No Pathology Yes (Right lower quadrant endometrioma sent to pathology along with right axillary cyst which was sent separately.) Complications No immediate complications Condition Stable Disposition PACU [facility] Billing Surgery - Charge Forward: Surgery Billing
[2025-04-13] MEDS: ACETAMINOPHEN 500 MG TABLET 1000 MG PO (16:15)
== END 2025-04-13 16:45 ==
PROVIDERS: PCP Nurse Practitioner Family; Visit Provider Surgery
PROC: (CPT 22903; principal; 2025-04-13 13:00)
DX: N80.121 Deep endometriosis of right ovary (principal); L72.0 Epidermal cyst; E06.3 Autoimmune thyroiditis; E66.9 Obesity, unspecified; Z68.36 Body mass index [BMI] 36.0-36.9, adult; Z98.890 Other specified postprocedural states; Z85.850 Personal history of malignant neoplasm of thyroid; Z80.0 Family history of malignant neoplasm of digestive organs
CPT/HCPCS: 22903; 11402; 12032; 10035; 88304; 88305; J0690; A9270; C1769; J1100; J1885; J2003; J2004; J2250; J2405; J2704; J3010; J7120